=== PATIENT | female | born 1965 | race Caucasian/White ===

== ENCOUNTER 2018-04-09 14:26 | Emergency (ER) | payer OTHER ==
--- NOTE | 2018-04-09 16:26 | ER Document Report ---
ED Medical Screen (RME) - General Chief Complaint: Abdominal Pain Stated Complaint: ABDOMINAL PAIN,SWELLING Time Seen by Provider: 04/09/18 16:23 Notes: 52 years old female who is an alcoholic, presents today with jaundice. Abdominal swelling as well as lower extremity swelling. TRAVEL OUTSIDE OF THE [place] IN LAST 30 DAYS: No - Related Data Allergies/Adverse Reactions: No Known Allergies Allergy (Unverified 04/09/18 16:24) Past Medical History - Social History Chew tobacco use (# tins/day): No Frequency of alcohol use: Heavy Drug Abuse: None Endocrine Medical History: Reports: Hx Diabetes Mellitus Type 2 Renal/ Medical History: Denies: Hx Peritoneal Dialysis Past Surgical History: Reports: Hx Tonsillectomy
[2018-04-09 17:37] LABS: ABSOLUTE BASOPHILS # (AUTO) 0.1 10^3/uL (0.0-0.2); ABSOLUTE LYMPHOCYTES (AUTO) 0.9 10^3/uL (0.5-4.7); ABSOLUTE MONOCYTES (AUTO) 0.9 10^3/uL (0.1-1.4); ABSOLUTE NEUT (AUTO) 12.3 10^3/uL (1.7-8.2); BASOPHILS % (AUTO) 0.4 % (0-2); EOSINOPHILS % (AUTO) 0.3 % (0-6); HEMATOCRIT 39.5 % (36.0-47.0); HEMOGLOBIN 13.4 g/dL (12.0-15.5); LYMPHOCYTES % (AUTO) 6.1 % (13-45); MEAN CORPUSCULAR HEMOGLOBIN 36.4 pg (27.0-33.4); MEAN CORPUSCULAR VOLUME 107 fl (80-97); MONOCYTES % (AUTO) 6.2 % (3-13); PLATELET COUNT 188 10^3/uL (150-450); RED BLOOD COUNT 3.68 10^6/uL (3.72-5.28); RED CELL DISTRIBUTION WIDTH 16.2 % (11.5-14.0); TOTAL CELLS COUNTED % (AUTO) 100 %; WHITE BLOOD COUNT 14.1 10^3/uL (4.0-10.5)
[2018-04-09 17:57] LABS: ALANINE AMINOTRANSFERASE 61 U/L (9-52); ALCOHOL < 10 mg/dL (NONE DETECTED); ALKALINE PHOSPHATASE 292 U/L (38-126); ANION GAP 12 (5-19); ASPARTATE AMINO TRANSFERASE 226 U/L (14-36); BILIRUBIN,DIRECT 16.6 mg/dL (0.0-0.4); BILIRUBIN,TOTAL 18.4 mg/dL (0.2-1.3); BLOOD UREA NITROGEN 14 mg/dL (7-20); CALCIUM 8.2 mg/dL (8.4-10.2); CARBON DIOXIDE 21 mmol/L (22-30); CHLORIDE 94 mmol/L (98-107); GAMMA-GLUTAMYL TRANSFERASE 929 U/L (8-78); GLUCOSE 58 mg/dL (75-110); LIPASE 464.3 U/L (23-300); POTASSIUM 4.5 mmol/L (3.6-5.0); SODIUM 127.1 mmol/L (137-145)
--- NOTE | 2018-04-09 19:22 | ER Document Report ---
ED General - General Chief Complaint: Abdominal Pain Stated Complaint: ABDOMINAL PAIN,SWELLING Time Seen by Provider: 04/09/18 16:23 Notes: Patient is a 52-year-old female with alcohol abuse that presents to the emergency department for chief complaint of abdominal pain, lower extremity swelling. Patient reports having these symptoms for about a week particularly lower extremity swelling, but brought her into the emergency department, was that home health aide noticed that she was yellow, particularly in her eyes and skin, and advised her to come to the emergency department. The patient states that she has had jaundice before, but denies history of cirrhosis or liver disease that she is aware of, and is not receiving treatment or follows with a counterintelligence/humint specialist. Regards to her abdominal pain she describes as a tightness across her abdomen, rates it currently as a 2 out of 10, aching in sensation, occasionally sharp. The lower extremity swelling was bilateral, and has worsened over the last week, she denies noting any tenderness or redness associated with it. She reports that she drinks alcohol on a daily basis, but did stop drinking about 1 week ago. She was drinking about 10 beers prior to that daily. She has had associated nausea and vomiting about once a day, but denies any hematemesis. She states she has diarrhea almost a daily basis. Past Medical History: Depression/anxiety Past Surgical History: Gastric bypass surgery, cholecystectomy Social History: Denies smoking cigarettes, but admits to drinking 10 beers daily , denies illicit drug use. Family History: Reviewed and noncontributory for presenting illness Allergies: Reviewed, see documented allergy list. REVIEW OF SYSTEMS: Unless otherwise stated in this report the patient's positive and negative responses for review of systems for constitutional, eyes, ENT, cardiovascular, respiratory, gastrointestinal, neurological, genitourinary, musculoskeletal, and integumentary systems and related systems to the presenting problem are either as stated in the HPI or were not pertinent or were negative for the symptoms and/or complaints related to the presenting medical problem. PHYSICAL EXAMINATION: Vital signs reviewed, nursing noted reviewed. GENERAL: Well-appearing, well-nourished and in no acute distress. HEAD: Atraumatic, normocephalic. EYES: Eyes appear normal, extraocular movements intact, sclera icteric, conjunctiva are normal. ENT: nares patent, oropharynx clear without exudates. Moist mucous membranes. NECK: Normal range of motion, supple without lymphadenopathy LUNGS: Breath sounds clear to auscultation bilaterally and equal. No wheezes rales or rhonchi. HEART: Regular rate and rhythm without murmurs ABDOMEN: Soft, nontender, normoactive bowel sounds. No distention. No fluid wave. No rebound, guarding, or rigidity. No masses appreciated. EXTREMITIES: Nontender, good range of motion, no pitting or edema. NEUROLOGICAL: No focal neurological deficits. Moves all extremities spontaneously Motor and sensory grossly intact on exam. PSYCH: Normal mood, normal affect. SKIN: Warm, Dry, normal turgor, jaundiced TRAVEL OUTSIDE OF THE [place] IN LAST 30 DAYS: No - Related Data Allergies/Adverse Reactions: No Known Allergies Allergy (Unverified 04/09/18 16:24) Past Medical History - Social History Smoking Status: Never Smoker Chew tobacco use (# tins/day): No Frequency of alcohol use: Heavy Drug Abuse: None Family History: Reviewed & Not Pertinent Patient has suicidal ideation: No Patient has homicidal ideation: No Endocrine Medical History: Reports: Hx Diabetes Mellitus Type 2 Renal/ Medical History: Denies: Hx Peritoneal Dialysis Past Surgical History: Reports: Hx Tonsillectomy Physical Exam - Vital signs Vitals: Resp Pulse Ox 19 100 04/09/18 21:08 04/09/18 21:08 Course - Re-evaluation Re-evalutation: Patient seen and examined vital signs reviewed. Laboratory data and imaging were ordered as appropriate for the patient's presenting symptoms and complaint, with consideration of any critical or life threatening conditions that may be associated with their obtained history and exam as noted above. Patient was treated with IV fluids, Rocephin, for possible spontaneous bacterial peritonitis Results were reviewed when available and demonstrated laboratory data consistent with acute alcoholic hepatitis, possible spontaneous bacterial peritonitis, therefore cover with Rocephin, patient had hyponatremia, severely elevated bilirubin, elevated INR not on anticoagulants, patient was started on IV Solu-Medrol, due to a markedly elevated Maddrey discriminate function score The patient was re-evaluated and was stable from a hemodynamic standpoint, however this patient will need to be transferred to a tertiary center, to be seen by gastroenterology, did discuss this with our hospitalist who agreed with this, patient was agreeable to transfer Evaluation was most consistent with acute alcoholic hepatitis Results were discussed with the patient at this point after careful consideration I feel that that patient should be transferred to [facility] due to need for gastroenterology evaluation, that cannot be provided at this medical institution. Case was discussed with Dr. Villatoro, who accepted the patient, this was discussed with the patient that it is in the best interest for their care to be transferred, the risks and benefits of transfer were discussed, including but not limited to clinical deterioration during transport, respiratory distress, and potential for traumatic injuries. Patient agreed with this plan of care. *Note is created using voice recognition software and may contain spelling, syntax or grammatical errors. 04/09/18 21:42 Microbiology 04/09/18 17:08 Urine Culture - Preliminary Clean Catch Midstream Gram Negative Rods Laboratory 04/09/18 04/09/18 04/09/18 17:08 17:08 17:08 WBC 14.1 H RBC 3.68 L Hgb 13.4 Hct 39.5 MCV 107 H MCH 36.4 H MCHC 34.0 RDW 16.2 H Plt Count 188 Seg Neutrophils % 87.0 H Lymphocytes % 6.1 L Monocytes % 6.2 Eosinophils % 0.3 Basophils % 0.4 Absolute Neutrophils 12.3 H Absolute Lymphocytes 0.9 Absolute Monocytes 0.9 Absolute Eosinophils 0.0 Absolute Basophils 0.1 PT INR APTT Sodium 127.1 L Potassium 4.5 Chloride 94 L Carbon Dioxide 21 L Anion Gap 12 BUN 14 Creatinine 0.80 Est GFR ( Amer) > 60 Est GFR (Non-Af Amer) > 60 Glucose 58 L Calcium 8.2 L Total Bilirubin 18.4 H Direct Bilirubin 16.6 H Neonat Total Bilirubin Not Reportable Neonat Direct Bilirubin Not Reportable Neonat Indirect Bili Not Reportable GGT 929 H AST 226 H ALT 61 H Alkaline Phosphatase 292 H Ammonia 19.8 NT-Pro-B Natriuret Pep Total Protein 8.0 Albumin 3.0 L Lipase 464.3 H Acetaminophen Serum Alcohol < 10 04/09/1818 04/09/18 17:08 17:08 17:08 WBC RBC Hgb Hct MCV MCH MCHC RDW Plt Count Seg Neutrophils % Lymphocytes % Monocytes % Eosinophils % Basophils % Absolute Neutrophils Absolute Lymphocytes Absolute Monocytes Absolute Eosinophils Absolute Basophils PT 21.6 H INR 1.78 APTT 41.9 H Sodium Potassium Chloride Carbon Dioxide Anion Gap BUN Creatinine Est GFR ( Amer) Est GFR (Non-Af Amer) Glucose Calcium Total Bilirubin Direct Bilirubin Neonat Total Bilirubin Neonat Direct Bilirubin Neonat Indirect Bili GGT AST ALT Alkaline Phosphatase Ammonia NT-Pro-B Natriuret Pep 2480 H Total Protein Albumin Lipase Acetaminophen < 10 L Serum Alcohol Abdomen/Pelvis CT 04/09/18 16:24 IMPRESSION: Fatty infiltration of the liver. Ascites. No other significant findings in the abdomen or pelvis. - Vital Signs Vital signs: Temp Pulse Resp BP Pulse Ox 98.8 F 20 118/82 99 04/10/18 02:26 04/10/18 02:11 04/10/18 02:11 04/10/18 02:11 - Laboratory Result Diagrams: 04/09/18 17:08 04/09/18 17:08 Laboratory results interpreted by me: 04/09/18 04/09/18 04/09/18 17:08 17:08 17:08 WBC 14.1 H RBC 3.68 L MCV 107 H MCH 36.4 H RDW 16.2 H Seg Neutrophils % 87.0 H Lymphocytes % 6.1 L Absolute Neutrophils 12.3 H PT APTT Sodium 127.1 L Chloride 94 L Carbon Dioxide 21 L Glucose 58 L Calcium 8.2 L Total Bilirubin 18.4 H Direct Bilirubin 16.6 H GGT 929 H AST 226 H ALT 61 H Alkaline Phosphatase 292 H NT-Pro-B Natriuret Pep 2480 H Albumin 3.0 L Lipase 464.3 H Acetaminophen 04/09/18 04/09/18 17:08 17:08 WBC RBC MCV MCH RDW Seg Neutrophils % Lymphocytes % Absolute Neutrophils PT 21.6 H APTT 41.9 H Sodium Chloride Carbon Dioxide Glucose Calcium Total Bilirubin Direct Bilirubin GGT AST ALT Alkaline Phosphatase NT-Pro-B Natriuret Pep Albumin Lipase Acetaminophen < 10 L Discharge - Discharge Clinical Impression: Acute alcoholic hepatitis, Hyponatremia, Hyperbilirubinemia Leukocytosis Qualifiers: Leukocytosis type: unspecified Qualified Code(s): D72.829 - Elevated white blood cell count, unspecified Ascites Qualifiers: Ascites type: due to alcoholic hepatitis Qualified Code(s): K70.11 - Alcoholic hepatitis with ascites Condition: Stable Disposition: [facility]
[2018-04-09 19:51] LABS: INTERNATIONAL RATION (INR) 1.78; PROTHROMBIN TIME 21.6 SEC (11.4-15.4)
[2018-04-09 19:52] LABS: PARTIAL THROMBOPLASTIN TIME 41.9 SEC (23.5-35.8)
--- NOTE | 2018-04-09 20:03 | RADIOLOGY REPORT (SQ) ---
EXAM DESCRIPTION: CT ABD/PELVIS WITH IV ORAL COMPLETED DATE/TIME: 04/09/2018 7:42 pm REASON FOR STUDY: Jaundice /abdominal pain COMPARISON: None. TECHNIQUE: CT scan of the abdomen and pelvis performed using helical scanning technique with dynamic intravenous contrast injection. No oral contrast. Images reviewed with lung, soft tissue, and bone windows. Reconstructed coronal and sagittal MPR images reviewed. Delayed images for evaluation of the urinary system also acquired. All images stored on PACS. All CT scanners at this facility use dose modulation, iterative reconstruction, and/or weight based d osing when appropriate to reduce radiation dose to as low as reasonably achievable (ALARA). [facility]: Dose Right [facility]: CareDose [facility]: Dose Right [facility]: Teradose 4D [facility]: icix CONTRAST TYPE AND DOSE: contrast/concentration: Isovue 350.00 mg/ml; Total Contrast Delivered: 99.0 ml; Total Saline Delivered: 52.0 ml RENAL FUNCTION: BUN 14 creatinine 0.8 RADIATION DOSE: CT Rad equipment meets quality standard of care and radiation dose reduction techniq ues were employed. CTDIvol: 16.2 - 18.2 mGy. DLP: 1907 mGy-cm.. LIMITATIONS: None. FINDINGS: LOWER CHEST: No significant findings. No nodules or infiltrates. LIVER: The liver is diffusely hypoattenuating. No masses are seen. SPLEEN: Normal size. No focal lesions. PANCREAS: No masses. No significant calcifications. No adjacent inflammation or peripancreatic fluid collections. Pancreatic duct not dilated. GALLBLADDER: Surgically absent. ADRENAL GLANDS: No significant masses or asymmetry. RIGHT KIDNEY AND URETER: No solid masses. No significant calcifications. No hydronephrosis or hyd roureter. LEFT KIDNEY AND URETER: No solid masses. No significant calcifications. No hydronephrosis or hydr oureter. AORTA AND VESSELS: No aneurysm. No dissection. Renal arteries, SMA, celiac without stenosis. RETROPERITONEUM: No retroperitoneal adenopathy, hemorrhage or masses. BOWEL AND PERITONEAL CAVITY: No masses or inflammatory changes. Mild to moderate ascites. APPENDIX: Surgically absent. PELVIS: No mass. No free fluid. Normal bladder. ABDOMINAL WALL: No masses. No hernias. BONES: No significant or acute findings. OTHER: No other significant finding. IMPRESSION: Fatty infiltration of the liver. Ascites. No other significant findings in the abdomen or pelvis. TECHNICAL DOCUMENTATION: JOB ID: [id number] Quality ID # [id number]: Final reports with documentation of one or more dose reduction techniques (e.g., Au tomated exposure control, adjustment of the mA and/or kV according to patient size, use of iterative reconstruction technique) 2010 [employer]- All Rights Reserved Reading location - IP/workstation name: [email or web address]
[2018-04-09] MEDS ORDERED: CEFTRIAXONE INJ 1000 MG VIAL IV ONE (20:40)
[2018-04-09] MEDS ORDERED: METHYLPREDNISOLONE INJ 40 MG/1 ML SDV IV ONE (21:32)
[2018-04-09] MEDS ORDERED: NORMAL SALINE 500 ML IV ONE (21:33)
[2018-04-09] MEDS ORDERED: DEXTROSE 50%-WATER 25 GM/50 ML DISP.SYRIN IV ONE (21:41)
[2018-04-10 02:18] VITALS: BP 118/82
== END 2018-04-10 02:34 | disposition short-term general hospital (02) ==
LOC: ER 14:26
DX: K70.11 Alcoholic hepatitis with ascites (principal); D72.829 Elevated white blood cell count, unspecified; E87.1 Hypo-osmolality and hyponatremia
CPT/HCPCS: 99285; 96374; 96375; 96365; 96366; 36415; 87086; 82962; 80307 ×2; 82140; 82977; 83690; 85025; 85610; 85730; 87088; 80053; 87186; 83880; 74177; J3490; J2920; J0696

== ENCOUNTER 2018-04-25 19:52 | Emergency (ER) | payer OTHER ==
--- NOTE | 2018-04-25 20:14 | ER Document Report ---
ED Medical Screen (RME) - General Chief Complaint: Knee Pain Stated Complaint: LEFT KNEE PAIN Time Seen by Provider: 04/25/18 20:12 Notes: 56 years old female with a history of cirrhosis of the liver had a fall few weeks ago presents with left knee pain and swelling as well as left inner thigh swelling. No fever chills or other constitutional symptoms. TRAVEL OUTSIDE OF THE [place] IN LAST 30 DAYS: No - Related Data Allergies/Adverse Reactions: No Known Allergies Allergy (Verified 04/25/18 20:09) Past Medical History - Social History Frequency of alcohol use: None Drug Abuse: None Endocrine Medical History: Reports: Hx Diabetes Mellitus Type 2 Renal/ Medical History: Denies: Hx Peritoneal Dialysis Past Surgical History: Reports: Hx Tonsillectomy Physical Exam - Vital signs Vitals: Temp Pulse Resp BP Pulse Ox 98.8 F 88 18 96/64 L 99 04/25/18 20:00 04/25/18 20:00 04/25/18 20:00 04/25/18 20:00 04/25/18 20:00 Course - Vital Signs Vital signs: Temp Pulse Resp BP Pulse Ox 98.8 F 88 18 96/64 L 99 04/25/18 20:00 04/25/18 20:00 04/25/18 20:00 04/25/18 20:00 04/25/18 20:00
--- NOTE | 2018-04-25 20:41 | RADIOLOGY REPORT (SQ) ---
EXAM DESCRIPTION: KNEE LEFT 4 VIEW COMPLETED DATE/TIME: 04/25/2018 8:26 pm REASON FOR STUDY: Left knee injury COMPARISON: None. NUMBER OF VIEWS: Four views. TECHNIQUE: AP, lateral, and both oblique radiographic images acquired of the left knee. LIMITATIONS: None. FINDINGS: MINERALIZATION: Normal. BONES: No acute fracture or dislocation. No worrisome bone lesions. JOINT: No effusion. SOFT TISSUES: No soft tissue swelling. No radio-opaque foreign body. OTHER: No other significant finding. IMPRESSION: NEGATIVE STUDY OF THE LEFT KNEE. NO RADIOGRAPHIC EVIDENCE OF ACUTE INJURY. TECHNICAL DOCUMENTATION: JOB ID: [id number] [employer]- All Rights Reserved Reading location - IP/workstation name: [email or web address]
--- NOTE | 2018-04-25 20:47 | ER Document Report ---
ED General - General Chief Complaint: Knee Pain Stated Complaint: LEFT KNEE PAIN Time Seen by Provider: 04/25/18 20:12 Notes: Patient is a 52-year-old female that presents to the emergency department for chief complaint of left knee pain. Patient reports that she first noticed this knee pain on 20 July, which was 2 days after her discharge from an 8-day stay for acute liver failure in the hospital. She has improved significantly from that standpoint, she did not have any pain or swelling of her leg in the hospital, and noticed it only after she was discharged. She denies any injuries that she is aware of. She describes the pain as a constant aching and very tender sensation in her left knee and into the thigh as well. She is also noticed some swelling in the leg. She rates the pain currently as a 9 out of 10 at its worst. Denies any numbness, tingling or weakness in her lower extremity. Denies having any fevers, chills, chest pain or shortness of breath. Past Medical History: Depression, anxiety, alcoholism Past Surgical History: Gastric bypass surgery, cholecystectomy Social History: Previously was a daily drinker, has since quit since her recent acute liver failure, denies tobacco use or illicit drug use. Family History: Reviewed and noncontributory for presenting illness Allergies: Reviewed, see documented allergy list. REVIEW OF SYSTEMS: Unless otherwise stated in this report the patient's positive and negative responses for review of systems for constitutional, eyes, ENT, cardiovascular, respiratory, gastrointestinal, neurological, genitourinary, musculoskeletal, and integumentary systems and related systems to the presenting problem are either as stated in the HPI or were not pertinent or were negative for the symptoms and/or complaints related to the presenting medical problem. PHYSICAL EXAMINATION: Vital signs reviewed, nursing noted reviewed. GENERAL: Well-appearing, well-nourished and in no acute distress. HEAD: Atraumatic, normocephalic. EYES: Eyes appear normal, extraocular movements intact, scleral icterus, conjunctiva are normal. ENT: nares patent, oropharynx clear without exudates. Moist mucous membranes. NECK: Normal range of motion, supple without lymphadenopathy LUNGS: Breath sounds clear to auscultation bilaterally and equal. No wheezes rales or rhonchi. HEART: Regular rate and rhythm without murmurs ABDOMEN: Soft, nontender, normoactive bowel sounds. No rebound, guarding, or rigidity. No masses appreciated. EXTREMITIES: Left lower extremity is mildly edematous, and particularly tender along the venous system, but she is also tender circumferentially to the thigh and calf. No erythema noted, no signs of infection. The knee has good range of motion, no knee effusion, or erythema. The rest of the patient's extremity exam is grossly unremarkable. NEUROLOGICAL: No focal neurological deficits. Moves all extremities spontaneously Motor and sensory grossly intact on exam. PSYCH: Normal mood, normal affect. SKIN: Warm, Dry, normal turgor, no rashes or lesions noted on exposed skin TRAVEL OUTSIDE OF THE [place] IN LAST 30 DAYS: No - Related Data Allergies/Adverse Reactions: No Known Allergies Allergy (Verified 04/25/18 21:05) Past Medical History - Social History Smoking Status: Never Smoker Frequency of alcohol use: None Drug Abuse: None Family History: Reviewed & Not Pertinent Patient has suicidal ideation: No Patient has homicidal ideation: No Endocrine Medical History: Reports: Hx Diabetes Mellitus Type 2 Renal/ Medical History: Denies: Hx Peritoneal Dialysis Past Surgical History: Reports: Hx Tonsillectomy Physical Exam - Vital signs Vitals: Temp Pulse Resp BP Pulse Ox 98.8 F 88 18 96/64 L 99 04/25/18 20:00 04/25/18 20:00 04/25/18 20:00 04/25/18 20:00 04/25/18 20:00 Course - Re-evaluation Re-evalutation: Patient seen and examined vital signs reviewed. Laboratory data and imaging were ordered as appropriate for the patient's presenting symptoms and complaint, with consideration of any critical or life threatening conditions that may be associated with their obtained history and exam as noted above. Patient was treated with Keflex, doxycycline, morphine and Zofran Results were reviewed when available and demonstrated leukocytosis, with shift towards neutrophils, she does have transaminitis, which is actually improved from her prior visit, and hyperbilirubinemia which is also improved. Duplex imaging of the left lower extremity was negative for DVT, I did perform bedside ultrasound that demonstrated cobblestoning, and subcutaneous fluid, concerning for cellulitis. The patient was re-evaluated and was improved from a pain standpoint, she was still photographer to palpate on her left lower extremity. Evaluation was most consistent with left lower extremity cellulitis. After performing working up the patient I felt that she should be admitted to the hospital, for left lower extremity cellulitis, in particular with a leukocytosis, and her having liver disease, I spoke with the patient at length in regards to leaving the hospital against medical advice. I discussed evaluation for their presenting complaint and recommended further evaluation. I do not believe the patient should leave but the patient is alert oriented x4, understands the risks and benefits of staying and leaving including disability and . Pt understands that they can return at any time for further care and is more than welcome to do so. Pt verbalizes this understanding. *Note is created using voice recognition software and may contain spelling, syntax or grammatical errors. Laboratory 04/25/18 04/25/18 04/25/18 22:32 22:32 22:32 WBC 16.8 H RBC 3.71 L Hgb 13.9 Hct 40.7 MCV 110 H MCH 37.4 H MCHC 34.1 RDW 14.2 H Plt Count 206 Total Counted 100 Seg Neutrophils % Not Reportable Seg Neuts % (Manual) 90 H Lymphocytes % Not Reportable Lymphocytes % (Manual) 7 L Monocytes % Not Reportable Monocytes % (Manual) 3 Eosinophils % Not Reportable Eosinophils % (Manual) 0 Basophils % Not Reportable Basophils % (Manual) 0 Absolute Neutrophils Not Reportable Abs Neuts (Manual) 15.1 H Absolute Lymphocytes Not Reportable Abs Lymphs (Manual) 1.2 Absolute Monocytes Not Reportable Abs Monocytes (Manual) 0.5 Absolute Eosinophils Not Reportable Absolute Eos (Manual) 0.0 Absolute Basophils Not Reportable Abs Basophils (Manual) 0.0 Toxic Granulation SLIGHT Platelet Comment ADEQUATE Anisocytosis SLIGHT Macrocytosis 2+ PT 21.3 H INR 1.75 Sodium 138.7 Potassium 4.1 Chloride 110 H Carbon Dioxide 20 L Anion Gap 9 BUN 17 Creatinine 0.58 Est GFR ( Amer) > 60 Est GFR (Non-Af Amer) > 60 Glucose 96 Calcium 8.7 Total Bilirubin 6.9 H Direct Bilirubin 5.6 H Neonat Total Bilirubin Not Reportable Neonat Direct Bilirubin Not Reportable Neonat Indirect Bili Not Reportable AST 89 H ALT 65 H Alkaline Phosphatase 167 H Total Protein 6.3 Albumin 2.6 L Knee X-Ray 04/25/18 20:13 IMPRESSION: NEGATIVE STUDY OF THE LEFT KNEE. NO RADIOGRAPHIC EVIDENCE OF ACUTE INJURY. Venous Doppler Study 04/25/18 20:13 IMPRESSION: No evidence of deep venous thrombus. - Vital Signs Vital signs: Temp Pulse Resp BP Pulse Ox 98.8 F 88 18 96/64 L 99 04/25/18 20:00 04/25/18 20:00 04/25/18 20:00 04/25/18 20:00 04/25/18 20:00 - Laboratory Result Diagrams: 04/25/18 22:32 04/25/18 22:32 Laboratory results interpreted by me: 04/25/18 04/25/18 04/25/18 22:32 22:32 22:32 WBC 16.8 H RBC 3.71 L MCV 110 H MCH 37.4 H RDW 14.2 H Seg Neuts % (Manual) 90 H Lymphocytes % (Manual) 7 L Abs Neuts (Manual) 15.1 H PT 21.3 H Chloride 110 H Carbon Dioxide 20 L Total Bilirubin 6.9 H Direct Bilirubin 5.6 H AST 89 H ALT 65 H Alkaline Phosphatase 167 H Albumin 2.6 L Discharge - Discharge Clinical Impression: Cellulitis of left lower extremity Condition: Stable Disposition: AGAINST MEDICAL ADVICE Instructions: Cellulitis ([facility]) Additional Instructions: Please return to the emergency department if you change your mind, and to be admitted to the hospital, for the infection in your leg. Otherwise please follow-up with your primary care physician. I did a bedside ultrasound guided bedside duplex and then her white count 16,000 with 90% neutrophils Prescriptions: Cephalexin Monohydrate [Keflex 500 mg Capsule] 500 mg PO Q6H 7 Days #28 capsule Doxycycline Hyclate 100 mg PO BID #14 capsule Referrals: HARPER QUINTEROS MD [ACTIVE STAFF] - Follow up in 3-5 days (OR YOUR PRIMARY CARE. )
[2018-04-25] MEDS ORDERED: MORPHINE SULFATE 10 MG/ML INJ IM ONE (20:52)
[2018-04-25] MEDS ORDERED: ONDANSETRON 4 MG TAB.RAPDIS PO ONE (20:52)
--- NOTE | 2018-04-25 22:43 | RADIOLOGY REPORT (SQ) ---
Ultrasound left lower extremity venous duplex exam on 04/25/2018 at 9:19 PM Clinical indications: Left thigh swelling COMPARISON: None FINDINGS: Multiple sonographic images are obtained in the right groin and from the left groin through the left calf vessels. Color flow, compression and spectral analysis are all performed. There is complete compressibility of the veins of the lower extremity. Good color flow is identified within the veins of the lower extremity. IMPRESSION: No evidence of deep venous thrombus.
[2018-04-25 22:50] LABS: HEMATOCRIT 40.7 % (36.0-47.0); HEMOGLOBIN 13.9 g/dL (12.0-15.5); MEAN CORPUSCULAR HEMOGLOBIN 37.4 pg (27.0-33.4); MEAN CORPUSCULAR HGB CONC 34.1 g/dL (32.0-36.0); MEAN CORPUSCULAR VOLUME 110 fl (80-97); PLATELET COUNT 206 10^3/uL (150-450); RED BLOOD COUNT 3.71 10^6/uL (3.72-5.28); RED CELL DISTRIBUTION WIDTH 14.2 % (11.5-14.0); WHITE BLOOD COUNT 16.8 10^3/uL (4.0-10.5)
[2018-04-25 22:55] LABS: INTERNATIONAL RATION (INR) 1.75; PROTHROMBIN TIME 21.3 SEC (11.4-15.4)
[2018-04-25 23:09] LABS: ALANINE AMINOTRANSFERASE 65 U/L (9-52); ALBUMIN 2.6 g/dL (3.5-5.0); ALKALINE PHOSPHATASE 167 U/L (38-126); ANION GAP 9 (5-19); ASPARTATE AMINO TRANSFERASE 89 U/L (14-36); BILIRUBIN,DIRECT 5.6 mg/dL (0.0-0.4); BILIRUBIN,TOTAL 6.9 mg/dL (0.2-1.3); BLOOD UREA NITROGEN 17 mg/dL (7-20); CALCIUM 8.7 mg/dL (8.4-10.2); CARBON DIOXIDE 20 mmol/L (22-30); CHLORIDE 110 mmol/L (98-107); GLUCOSE 96 mg/dL (75-110); POTASSIUM 4.1 mmol/L (3.6-5.0); SODIUM 138.7 mmol/L (137-145); TOTAL PROTEIN 6.3 g/dL (6.3-8.2)
[2018-04-25 23:13] LABS: ABSOLUTE LYMPHOCYTES# (MANUAL) 1.2 10^3/uL (0.5-4.7); ABSOLUTE MONOCYTES # (MANUAL) 0.5 10^3/uL (0.1-1.4); ABSOLUTE NEUTROPHILS# (MANUAL) 15.1 10^3/uL (1.7-8.2); BASOPHILS % (MANUAL) 0 % (0-2); EOSINOPHILS % (MANUAL) 0 % (0-6); LYMPHOCYTES % (MANUAL) 7 % (13-45); MONOCYTES % (MANUAL) 3 % (3-13); SEGMENTED NEUTROPHILS % (MAN) 90 % (42-78); TOTAL CELLS COUNTED 100
[2018-04-25 23:14] LABS: ANISOCYTOSIS SLIGHT
[2018-04-25 23:15] LABS: PLATELET COMMENT ADEQUATE; TOXIC GRANULATION SLIGHT
[2018-04-25] MEDS ORDERED: CEPHALEXIN 500 MG CAPSULE PO ONE (23:16)
[2018-04-25] MEDS ORDERED: DOXYCYCLINE HYCLATE 100 MG TABLET PO ONE (23:16)
[2018-04-26 01:20] VITALS: BP 98/62
== END 2018-04-26 00:25 | disposition left against medical advice (07) ==
LOC: ER 19:52
DX: L03.116 Cellulitis of left lower limb (principal); M25.562 Pain in left knee; M79.652 Pain in left thigh; D72.829 Elevated white blood cell count, unspecified; E11.9 Type 2 diabetes mellitus without complications; Z98.84 Bariatric surgery status; Z53.20 Procedure and treatment not carried out because of patient's decision for unspecified reasons
CPT/HCPCS: 99284; 96372; 36415; 85025; 85610; 80053; 93971; 73564; S0119; J2270

== ENCOUNTER 2018-05-13 10:12 | Inpatient (IN) | payer OTHER ==
--- NOTE | 2018-05-13 10:34 | ER Document Report ---
ED Medical Screen (RME) - General Chief Complaint: Shortness Of Breath Stated Complaint: SHORT OF BREATH Time Seen by Provider: 05/13/18 10:23 TRAVEL OUTSIDE OF THE [place] IN LAST 30 DAYS: No - HPI Patient complains to provider of: Shortness of breath Onset: Other - 52-year-old female with alcoholic cirrhosis of the liver and ascites presents for dyspnea. She was seen in urgent care subsequently referred because of her shortness of breath. She endorses a cough as well as some low- grade fever, she is producing sputum with her cough. Nothing is making her symptoms better, time seems to be making them worse. - Related Data Allergies/Adverse Reactions: No Known Allergies Allergy (Verified 05/13/18 10:31) Past Medical History - Social History Chew tobacco use (# tins/day): No Frequency of alcohol use: None Drug Abuse: None Pulmonary Medical History: Reports: Hx Asthma Endocrine Medical History: Reports: Hx Diabetes Mellitus Type 2 Renal/ Medical History: Denies: Hx Peritoneal Dialysis Psychiatric Medical History: Reports: Hx Depression Past Surgical History: Reports: Hx Abdominal Surgery - gastric bypass, Hx Appendectomy, Hx Cholecystectomy, Hx Hysterectomy, Hx Tonsillectomy Physical Exam - Vital signs Vitals: Temp Pulse Resp BP Pulse Ox 98.0 F 116 H 18 120/87 H 100 05/13/18 10:18 05/13/18 10:18 05/13/18 10:18 05/13/18 10:18 05/13/18 10:18 Course - Re-evaluation Re-evalutation: 05/13/18 10:33 This woman with past medical history significant for cirrhosis,. Her abdomen is rounded and distended, she has a cough shortness of breath and is producing sputum feels generally unwell. We will initiate broad workup including CMP CBC with coags for investigation of her function. We will plan for patient undergo two-view chest x-ray as well. We will defer further imaging and disposition in next provider. I have seen and evaluated this patient and performed a rapid medical screening examination, he does not appear to have an immediate life threat however will require further investigation and disposition determination by another provider. - Vital Signs Vital signs: Temp Pulse Resp BP Pulse Ox 98.0 F 116 H 18 120/87 H 100 05/13/18 10:18 05/13/18 10:18 05/13/18 10:18 05/13/18 10:18 05/13/18 10:18
[2018-05-13] MEDS ORDERED: IPRATROPIUM/ALBUTEROL 0.5-2.5 MG/3 ML AMPUL NEB ONE (11:17)
[2018-05-13 11:19] LABS: ABSOLUTE BASOPHILS # (AUTO) 0.1 10^3/uL (0.0-0.2); ABSOLUTE EOSINOPHILS # (AUTO) 0.1 10^3/uL (0.0-0.6); ABSOLUTE LYMPHOCYTES (AUTO) 0.8 10^3/uL (0.5-4.7); ABSOLUTE MONOCYTES (AUTO) 0.7 10^3/uL (0.1-1.4); ABSOLUTE NEUT (AUTO) 8.8 10^3/uL (1.7-8.2); BASOPHILS % (AUTO) 0.5 % (0-2); EOSINOPHILS % (AUTO) 0.9 % (0-6); HEMATOCRIT 41.9 % (36.0-47.0); HEMOGLOBIN 14.2 g/dL (12.0-15.5); LYMPHOCYTES % (AUTO) 7.6 % (13-45); MEAN CORPUSCULAR HEMOGLOBIN 36.2 pg (27.0-33.4); MEAN CORPUSCULAR VOLUME 107 fl (80-97); RED BLOOD COUNT 3.92 10^6/uL (3.72-5.28); RED CELL DISTRIBUTION WIDTH 14.1 % (11.5-14.0); TOTAL CELLS COUNTED % (AUTO) 100 %; WHITE BLOOD COUNT 10.5 10^3/uL (4.0-10.5)
[2018-05-13 11:32] LABS: PLATELET COUNT 198 10^3/uL (150-450)
[2018-05-13 11:35] LABS: ALANINE AMINOTRANSFERASE 48 U/L (9-52); ALBUMIN 2.9 g/dL (3.5-5.0); ALKALINE PHOSPHATASE 232 U/L (38-126); ANION GAP 9 (5-19); ASPARTATE AMINO TRANSFERASE 85 U/L (14-36); BILIRUBIN,DIRECT 3.6 mg/dL (0.0-0.4); BILIRUBIN,TOTAL 5.7 mg/dL (0.2-1.3); BLOOD UREA NITROGEN 10 mg/dL (7-20); CALCIUM 8.4 mg/dL (8.4-10.2); CARBON DIOXIDE 19 mmol/L (22-30); CHLORIDE 104 mmol/L (98-107); GLUCOSE 94 mg/dL (75-110); LIPASE 471.9 U/L (23-300); POTASSIUM 4.5 mmol/L (3.6-5.0); SODIUM 132.4 mmol/L (137-145); TOTAL PROTEIN 7.1 g/dL (6.3-8.2)
[2018-05-13] MEDS ORDERED: FUROSEMIDE INJ/PF 40 MG/4 ML SDV IV ONE (11:40)
--- NOTE | 2018-05-13 11:46 | ER Document Report ---
ED General - General Chief Complaint: Shortness Of Breath Stated Complaint: SHORT OF BREATH Time Seen by Provider: 05/13/18 10:23 Mode of Arrival: Ambulatory Information source: Patient, Relative, [facility] Records Notes: 52-year-old female with alcoholic cirrhosis, known ascites, asthma, type 2 diabetes presents with complaint of shortness of breath that started 3 days prior to arrival. Patient reports a productive cough with white sputum. She denies fever, chills, chest pain. She is complaining of shortness of breath. Patient has abdominal pain which has been present for over 1 month. She was recently transferred to [facility] for GI assessment for her alcoholic cirrhosis. She did not undergo paracentesis there. She was reevaluated last week by her GI doctor Dr. Mraquez. She states that she did tell him about the abdominal pain. She states that her abdomen was more distended last week than it is now. Patient denies current alcohol use. is at the bedside and states that when the patient presented in March 2018 she was confused, altered. Today the patient is alert, awake. TRAVEL OUTSIDE OF THE [place] IN LAST 30 DAYS: No - HPI Onset: Other - 3 days prior to arrival Onset/Duration: Persistent Quality of pain: Fullness Severity: Moderate Associated symptoms: Productive cough, Hurts to breath, Leg swelling, Shortness of breath. denies: Chest pain, Chills, Fever, Nausea, Vomiting Exacerbated by: Coughing Relieved by: Denies Similar symptoms previously: Yes Recently seen / treated by doctor: Yes - Related Data Allergies/Adverse Reactions: No Known Allergies Allergy (Verified 05/13/18 10:31) Past Medical History - General Information source: Patient, Relative, [facility] Records - Social History Smoking Status: Never Smoker Chew tobacco use (# tins/day): No Frequency of alcohol use: Heavy - Previous history of heavy daily alcohol use. States that she has not used in a few weeks. Drug Abuse: None Family History: Reviewed & Not Pertinent Patient has suicidal ideation: No Patient has homicidal ideation: No Pulmonary Medical History: Reports: Hx Asthma Endocrine Medical History: Reports: Hx Diabetes Mellitus Type 2 Renal/ Medical History: Denies: Hx Peritoneal Dialysis GI Medical History: Reports: Hx Cirrhosis Psychiatric Medical History: Reports: Hx Depression Past Surgical History: Reports: Hx Abdominal Surgery - gastric bypass, Hx Appendectomy, Hx Cholecystectomy, Hx Hysterectomy, Hx Tonsillectomy Review of Systems - Review of Systems Constitutional: denies: Fever, Weakness EENT: No symptoms reported Cardiovascular: denies: Chest pain, Dizziness Respiratory: Cough, Hurts to breathe, Short of breath Gastrointestinal: Abdomen distended, Abdominal pain. denies: Nausea, Vomiting Genitourinary: denies: Dysuria, Flank pain Female Genitourinary: No symptoms reported Musculoskeletal: denies: Back pain Skin: denies: Rash Hematologic/Lymphatic: No symptoms reported Neurological/Psychological: denies: Confusion, Weakness, Gait changes, Headaches -: Yes All other systems reviewed and negative Physical Exam - Vital signs Vitals: Temp Pulse Resp BP Pulse Ox 98.0 F 116 H 18 120/87 H 100 05/13/18 10:18 05/13/18 10:18 05/13/18 10:18 05/13/18 10:18 05/13/18 10:18 Interpretation: Tachycardic. No: Febrile - Notes Notes: PHYSICAL EXAMINATION: GENERAL: Well-appearing, well-nourished and in no acute distress. HEAD: Atraumatic, normocephalic. EYES: Pupils equal round and reactive to light, extraocular movements intact, mild scleral icterus. ENT: Nares patent, oropharynx clear without exudates. Moist mucous membranes. NECK: Normal range of motion, supple without lymphadenopathy LUNGS: Breath sounds clear to auscultation bilaterally and equal. No wheezes rales or rhonchi. HEART: Tachycardic, regular rhythm, no murmurs. ABDOMEN: Right upper quadrant tenderness with palpation. Abdominal distention. No guarding, no rebound. No masses appreciated. Female : deferred Musculoskeletal: Normal range of motion, no pitting or edema. No cyanosis. NEUROLOGICAL: Cranial nerves grossly intact. Normal speech, normal gait. Normal sensory, motor exams PSYCH: Normal mood, normal affect. SKIN: Warm, Dry, normal turgor, no rashes or lesions noted. Course - Re-evaluation Re-evalutation: 05/14/18 20:22 Microbiology 05/13/18 15:00 Blood Culture - Preliminary Blood NO GROWTH IN 24 HOURS 05/13/18 14:00 Blood Culture - Preliminary Blood Gram Positive Cocci In Pairs Laboratory 05/13/18 05/13/18 05/13/18 10:40 10:40 10:40 WBC 10.5 RBC 3.92 Hgb 14.2 Hct 41.9 MCV 107 H MCH 36.2 H MCHC 34.0 RDW 14.1 H Plt Count 198 Seg Neutrophils % 84.0 H Lymphocytes % 7.6 L Monocytes % 7.0 Eosinophils % 0.9 Basophils % 0.5 Absolute Neutrophils 8.8 H Absolute Lymphocytes 0.8 Absolute Monocytes 0.7 Absolute Eosinophils 0.1 Absolute Basophils 0.1 PT INR APTT Sodium 132.4 L Potassium 4.5 Chloride 104 Carbon Dioxide 19 L Anion Gap 9 BUN 10 Creatinine 0.70 Est GFR ( Amer) > 60 Est GFR (Non-Af Amer) > 60 Glucose 94 POC Glucose Hemoglobin A1c % Calcium 8.4 Magnesium Total Bilirubin 5.7 H Direct Bilirubin 3.6 H Neonat Total Bilirubin Not Reportable Neonat Direct Bilirubin Not Reportable Neonat Indirect Bili Not Reportable AST 85 H ALT 48 Alkaline Phosphatase 232 H Total Protein 7.1 Albumin 2.9 L Lipase 471.9 H 488.1 H Urine Creatinine Urine Sodium 05/13/18 05/13/18 05/13/18 10:40 11:32 17:24 WBC RBC Hgb Hct MCV MCH MCHC RDW Plt Count Seg Neutrophils % Lymphocytes % Monocytes % Eosinophils % Basophils % Absolute Neutrophils Absolute Lymphocytes Absolute Monocytes Absolute Eosinophils Absolute Basophils PT 19.2 H INR 1.54 APTT 39.4 H Sodium Potassium Chloride Carbon Dioxide Anion Gap BUN Creatinine Est GFR ( Amer) Est GFR (Non-Af Amer) Glucose POC Glucose 143 H Hemoglobin A1c % 4.1 L Calcium Magnesium Total Bilirubin Direct Bilirubin Neonat Total Bilirubin Neonat Direct Bilirubin Neonat Indirect Bili AST ALT Alkaline Phosphatase Total Protein Albumin Lipase Urine Creatinine Urine Sodium 05/13/18 05/13/18 05/14/18 23:11 23:52 04:26 WBC 11.4 H RBC 3.73 Hgb 13.4 Hct 39.3 MCV 105 H MCH 35.8 H MCHC 34.1 RDW 13.8 Plt Count 188 Seg Neutrophils % 80.9 H Lymphocytes % 11.0 L Monocytes % 6.5 Eosinophils % 0.8 Basophils % 0.8 Absolute Neutrophils 9.3 H Absolute Lymphocytes 1.3 Absolute Monocytes 0.7 Absolute Eosinophils 0.1 Absolute Basophils 0.1 PT INR APTT Sodium Potassium Chloride Carbon Dioxide Anion Gap BUN Creatinine Est GFR ( Amer) Est GFR (Non-Af Amer) Glucose POC Glucose 90 Hemoglobin A1c % Calcium Magnesium Total Bilirubin Direct Bilirubin Neonat Total Bilirubin Neonat Direct Bilirubin Neonat Indirect Bili AST ALT Alkaline Phosphatase Total Protein Albumin Lipase Urine Creatinine 43.7 Urine Sodium 41 05/14/18 04:26 WBC RBC Hgb Hct MCV MCH MCHC RDW Plt Count Seg Neutrophils % Lymphocytes % Monocytes % Eosinophils % Basophils % Absolute Neutrophils Absolute Lymphocytes Absolute Monocytes Absolute Eosinophils Absolute Basophils PT INR APTT Sodium 133.4 L Potassium 3.4 L D Chloride 103 Carbon Dioxide 20 L Anion Gap 10 BUN 10 Creatinine 0.77 Est GFR ( Amer) > 60 Est GFR (Non-Af Amer) > 60 Glucose 102 POC Glucose Hemoglobin A1c % Calcium 7.8 L Magnesium 1.6 Total Bilirubin 5.0 H Direct Bilirubin 3.2 H Neonat Total Bilirubin Not Reportable Neonat Direct Bilirubin Not Reportable Neonat Indirect Bili Not Reportable AST 68 H ALT 42 Alkaline Phosphatase 182 H Total Protein 5.8 L Albumin 2.4 L Lipase Urine Creatinine Urine Sodium Chest X-Ray 05/13/18 10:31 IMPRESSION: Low lung volumes with bibasilar atelectasis. Question early or developing right upper lobe pneumonia. Chest/Abdomen CTA 05/13/18 11:40 IMPRESSION: No CT angio evidence of acute pulmonary emboli or thoracic aortic dissection. Minimal airspace disease in the right upper lobe, question early or developing pneumonia. Moderate ascites with nodular liver and splenomegaly from portal hypertension and cirrhosis. Post gastric bypass. 52-year-old female with known alcoholic cirrhosis presents with complaint of shortness of breath that has been ongoing for the last couple of days. Upon arrival patient is tachycardic, visibly dyspneic, but afebrile. Previous nursing notes and medical records were reviewed. Patient was placed on, provided breathing treatments. CBC was without leukocytosis or anemia. CMP showed no remarkable electrolyte abnormalities and renal function. LFTs despite the patient's liver cirrhosis are only mildly elevated. Chest x-ray was obtained and questionable for right upper lobe pneumonia. Since the patient has been recently hospitalized vancomycin and aztreonam was initiated. The patient remained consistently tachycardic and CTA was obtained to assess for PE which was negative for PE but again questionable for development of a upper lobe pneumonia. It also showed moderate ascites, which is likely contributing to the patient's shortness of breath. She may require therapeutic paracentesis. Patient has remained stable throughout her ED course. She is agreeable with admission. Patient was accepted by the hospitalist. 05/14/18 20:23 05/15/18 10:27 05/15/18 10:31 - Vital Signs Vital signs: Temp Pulse Resp BP Pulse Ox 98.9 F 98 186 H 106/60 97 05/15/18 07:40 05/15/18 09:01 05/15/18 09:01 05/15/18 07:40 05/15/18 09:01 - Laboratory Result Diagrams: 05/14/18 04:26 05/15/18 05:43 Laboratory results interpreted by me: 05/13/18 05/13/18 05/13/18 10:40 10:40 10:40 MCV 107 H MCH 36.2 H RDW 14.1 H Seg Neutrophils % 84.0 H Lymphocytes % 7.6 L Absolute Neutrophils 8.8 H PT APTT Sodium 132.4 L Carbon Dioxide 19 L Hemoglobin A1c % Total Bilirubin 5.7 H Direct Bilirubin 3.6 H AST 85 H Alkaline Phosphatase 232 H Albumin 2.9 L Lipase 471.9 H 488.1 H 05/13/18 05/13/18 10:40 11:32 MCV MCH RDW Seg Neutrophils % Lymphocytes % Absolute Neutrophils PT 19.2 H APTT 39.4 H Sodium Carbon Dioxide Hemoglobin A1c % 4.1 L Total Bilirubin Direct Bilirubin AST Alkaline Phosphatase Albumin Lipase - Diagnostic Test Radiology reviewed: Image reviewed, Reports reviewed - EKG Interpretation by Me EKG shows normal: Sinus rhythm Rate: Tachycardia Rhythm: NSR When compared to previous EKG there are: No significant change Discharge - Discharge Clinical Impression: HCAP (healthcare-associated pneumonia), Tachycardia Dyspnea Qualifiers: Dyspnea type: unspecified Qualified Code(s): R06.00 - Dyspnea, unspecified Alcoholic cirrhosis of liver Qualifiers: Ascites presence: with ascites Qualified Code(s): K70.31 - Alcoholic cirrhosis of liver with ascites Condition: Fair Disposition: ADMITTED INPATIENT Admitting Provider: Hospitalist Unit Admitted: Telemetry
--- NOTE | 2018-05-13 11:54 | RADIOLOGY REPORT (SQ) ---
EXAM DESCRIPTION: CHEST 2 VIEWS COMPLETED DATE/TIME: 05/13/2018 11:03 am REASON FOR STUDY: dysppnea COMPARISON: None. EXAM PARAMETERS: NUMBER OF VIEWS: two views TECHNIQUE: Digital Frontal and Lateral radiographic views of the chest acquired. RADIATION DOSE: NA LIMITATIONS: none FINDINGS: LUNGS AND PLEURA: Very low lung volumes with bibasilar bandlike atelectasis. Question early or developing right upper lobe infiltrate, marked with a [place], worrisome for pneumon ia. No pneumothorax. No pleural effusions. MEDIASTINUM AND HILAR STRUCTURES: No masses or contour abnormalities. HEART AND VASCULAR STRUCTURES: Heart normal size. No evidence for failure. BONES: No acute findings. HARDWARE: None in the chest. OTHER: Clips right upper quadrant post cholecystectomy IMPRESSION: Low lung volumes with bibasilar atelectasis. Question early or developing right upper l obe pneumonia. TECHNICAL DOCUMENTATION: JOB ID: [id number] [employer]- All Rights Reserved Reading location - IP/workstation name: [email or web address]
[2018-05-13 12:01] LABS: INTERNATIONAL RATION (INR) 1.54; PROTHROMBIN TIME 19.2 SEC (11.4-15.4)
[2018-05-13 12:02] LABS: PARTIAL THROMBOPLASTIN TIME 39.4 SEC (23.5-35.8)
[2018-05-13] MEDS ORDERED: PIPERACILLIN/TAZOBACTAM 3.375 GM VIAL IV ONE (13:20)
[2018-05-13] MEDS ORDERED: VANCOMYCIN HCL INJ 1000 MG VIAL IV ONE (13:20)
--- NOTE | 2018-05-13 13:42 | RADIOLOGY REPORT (SQ) ---
EXAM DESCRIPTION: CTA CHEST COMPLETED DATE/TIME: 05/13/2018 1:14 pm REASON FOR STUDY: sob shortness of breath, pain on deep inspiration COMPARISON: Two-view chest 05/13/2018 TECHNIQUE: CT scan of the chest performed using helical scanning technique with dynamic intravenous contrast injection. Images reviewed with lung, soft tissue and bone windows. Reconstructed coronal and sagittal MPR images reviewed. Additional 3 dimensional post-processing performed to develop Maximal Intensity Projection images (MD P). All images stored on PACS. All CT scanners at this facility use dose modulation, iterative reconstruction, and/or weight based d osing when appropriate to reduce radiation dose to as low as reasonably achievable (ALARA). [facility]: Dose Right [facility]: CareDose [facility]: Dose Right [facility]: Teradose 4D [facility]: Viamericas CONTRAST TYPE AND DOSE: contrast/concentration: Isovue 350.00 mg/ml; Total Contrast Delivered: 74.0 ml; Total Saline Delivered: 110.0 ml Contrast bolus optimized for the pulmonary arteries and thoracic aorta. RENAL FUNCTION: Creatinine 0.7 RADIATION DOSE: CT Rad equipment meets quality standard of care and radiation dose reduction techniq ues were employed. CTDIvol: 21.2 - 33.1 mGy. DLP: 634 mGy-cm. . LIMITATIONS: None. FINDINGS: Post gastric bypass. Moderate to large amount of ascites in the upper abdomen. Nodular c ontour of the liver worrisome for cirrhosis. Splenomegaly. LUNGS AND PLEURA: Bandlike atelectasis is present just above the right and left hemidiaphragms. In the periphery of the right upper lobe on axial images 22-32, there is patchy airspace disease worr isome for early or developing pneumonia. AORTA AND GREAT VESSELS: No thoracic aortic aneurysm or dissection. HEART: No pericardial effusion. No significant coronary artery calcifications. PULMONARY ARTERIES: No emboli visualized in the main pulmonary arteries or the segmental branches. HILAR AND MEDIASTINAL STRUCTURES: No identified masses or abnormal nodes. HARDWARE: None in the chest. UPPER ABDOMEN: As above THYROID AND OTHER SOFT TISSUES: No masses. No adenopathy. BONES: No acute or significant finding. 3D MIPS: Confirm above findings. OTHER: No other significant finding. IMPRESSION: No CT angio evidence of acute pulmonary emboli or thoracic aortic dissection. Minimal airspace disease in the right upper lobe, question early or developing pneumonia. Moderate ascites with nodular liver and splenomegaly from portal hypertension and cirrhosis. Post ga stric bypass. COMMENT: Quality ID # [id number]: Final reports with documentation of one or more dose reduction techniques (e.g., Automated exposure control, adjustment of the mA and/or kV according to patient size, use of iterative reconstruction technique) TECHNICAL DOCUMENTATION: JOB ID: [id number] [employer]- All Rights Reserved Reading location - IP/workstation name: [email or web address]
[2018-05-13] MEDS ORDERED: IPRATROPIUM/ALBUTEROL 0.5-2.5 MG/3 ML AMPUL NEB PRN (14:38)
[2018-05-13] MEDS ORDERED: ONDANSETRON HCL INJ/PF 4 MG/2 ML SDV IV PRN (14:38)
[2018-05-13] MEDS ORDERED: LACTULOSE SYRUP 20 GM/30 ML UDCUP PO PRN (14:47)
[2018-05-13] MEDS ORDERED: VANCOMYCIN HCL 0 MG in DEXTROSE 5%-WATER 250 ML IV NR (15:00)
--- NOTE | 2018-05-13 15:55 | PDOC H&P ---
History of Present Illness Admission Date/PCP: 05/13/18 14:03 Patient complains of: Shortness of breath History of Present Illness: THEODORE BELTRÁN is a 52 year old female past medical history of EtOH abuse , alcoholic cirrhosis, gastric bypass in 1997, chronic anemia. Patient presented to [facility] on 04/09/2018 complaining of worsening jaundice and bilateral lower extremity edema and was diagnosed with alcoholic hepatitis. She was transferred to [facility] for gastroenterology evaluation. She was hospitalized there for 8 days and was diagnosed with cirrhosis due to alcoholism chance that other causes of cirrhosis were ruled out. She was neither intubated nor was any other procedure done. Denies any history of variceal bleeding, SBP or paracentesis. Patient is presenting today complaining of worsening productive cough and shortness of breath associated with nausea dry heaves, worsening bilateral lower extremity edema. He is also complaining of persistent right upper quadrant pain for a month and endorses diarrhea but she states that she is on lactulose for her cirrhosis. She denies any fever, chills, chest pain or any urinary symptoms. She states that she has severe iron deficiency anemia and she was placed on ferrous sulfate for the last several years. She denies any hematemesis, varices or variceal bleeding, hemoptysis, melena, hematochezia Past Medical History Pulmonary Medical History: Reports: Asthma Endocrine Medical History: Reports: Diabetes Mellitus Type 2 GI Medical History: Reports: Cirrhosis Psychiatric Medical History: Reports: Depression Past Surgical History Past Surgical History: Reports: Appendectomy, Cholecystectomy, Hysterectomy, Tonsillectomy Social History Smoking Status: Never Smoker Family History Family History: Reviewed & Not Pertinent Parental Family History Reviewed: Yes Children Family History Reviewed: Yes Sibling(s) Family History Reviewed.: Yes Medication/Allergy Home Medications: Bupropion HCl [Wellbutrin Xl 150 mg 24hr Tablet] 150 mg PO QAM 05/13/18 Citalopram Hydrobromide [Celexa 20 mg Tablet] 20 mg PO DAILY 05/13/18 Ferrous Sulfate [Feosol 325 mg Tablet] 325 mg PO TID 05/13/18 Multivitamin [Daily Multiple Vitamin] 1 tab PO DAILY 05/13/18 Allergies/Adverse Reactions: No Known Allergies Allergy (Verified 05/13/18 10:31) Review of Systems Review of Systems: As per HPI Physical Exam Vital Signs: Temp Pulse Resp BP Pulse Ox 98.0 F 116 H 18 120/87 H 100 05/13/18 10:18 05/13/18 10:18 05/13/18 10:18 05/13/18 10:18 05/13/18 10:18 General appearance: PRESENT: no acute distress, morbidly obese, well-developed, well-nourished Neck exam: ABSENT: carotid bruit, JVD, lymphadenopathy, thyromegaly Respiratory exam: PRESENT: clear to auscultation melany. ABSENT: rales, rhonchi, wheezes Cardiovascular exam: PRESENT: RRR. ABSENT: diastolic murmur, rubs, systolic murmur GI/Abdominal exam: PRESENT: normal bowel sounds, soft. ABSENT: distended, guarding, mass, organolmegaly, rebound, tenderness Extremities exam: PRESENT: +2 edema - Above knees Neurological exam: PRESENT: other - No asterixis Skin exam: PRESENT: other - Spider angiomas over chest Results Impressions: Chest X-Ray 05/13/18 10:31 IMPRESSION: Low lung volumes with bibasilar atelectasis. Question early or developing right upper lobe pneumonia. Chest/Abdomen CTA 05/13/18 11:40 IMPRESSION: No CT angio evidence of acute pulmonary emboli or thoracic aortic dissection. Minimal airspace disease in the right upper lobe, question early or developing pneumonia. Moderate ascites with nodular liver and splenomegaly from portal hypertension and cirrhosis. Post gastric bypass. Assessment & Plan - Diagnosis (1) Pneumonia Is this a current diagnosis for this admission?: Yes Plan: Healthcare/hospital-acquired pneumonia likely due to recent hospitalization. Start on Vanco and cefepime for empiric coverage of Pseudomonas and gram- positive cocci. Sputum culture. Nebs. (2) Alcoholic cirrhosis Is this a current diagnosis for this admission?: Yes Plan: Child Salazar score of 11 grade C. Continue lactulose. Monitor volume status. Monitor for metabolic encephalopathy. Empiric SBP treatment. She is reporting right upper quadrant pain for the last 1 month. No significant ascites appreciated based on physical examination. (3) Volume overload Is this a current diagnosis for this admission?: Yes Plan: Continue IV Lasix guided by her vitals. Monitor electrolytes, volume restriction, strict in and out. Hepatic diet. (4) Hyponatremia Is this a current diagnosis for this admission?: Yes Plan: Hypervolemic hyponatremic hyponatremia. Due to underlying volume overload caused by liver cirrhosis. Will order urine sodium, urine creatinine. Continue IV Lasix guided by her vital status. CMP tomorrow (5) Depression Is this a current diagnosis for this admission?: No Plan: Denies any suicidal or homicidal ideation. Restart home meds.
--- NOTE | 2018-05-13 16:27 | EKG REPORT ---
SEVERITY:- ABNORMAL ECG - SINUS TACHYCARDIA LEFT AXIS DEVIATION CONSIDER ANTEROSEPTAL INFARCT NONSPECIFIC T ABNORMALITIES, LATERAL LEADS : Confirmed by: Dex Patel MD 13-May-2018 16:26:23
--- NOTE | 2018-05-13 16:28 | EKG REPORT ---
SEVERITY:- ABNORMAL ECG - SINUS TACHYCARDIA INFERIOR INFARCT, ACUTE (UNCERTAIN, SEVERE BASELINE DISTORTION INFERIOR LEADS), NEED REPEAT EKG TO BE SURE, NEED CLINICAL CORRELATION. CONSIDER ANTEROSEPTAL INFARCT : Confirmed by: Dex Patel MD 13-May-2018 16:27:55
[2018-05-13] MEDS: FERROUS SULFATE 325 MG TABLET PO SCH (17:52)
[2018-05-13] MEDS: LANSOPRAZOLE 30 MG TAB.RAP.DR PO SCH (17:52)
[2018-05-13] MEDS ORDERED: CEFEPIME 1 GM/D5W RTU 1 GM/50 ML RTUPB IV SCH (22:00)
[2018-05-13] MEDS: HEPARIN SOD (PORCINE) 5,000 UNIT/ML 1 ML SYRINGE SUBCUT SCH (22:33)
[2018-05-13] MEDS: FUROSEMIDE INJ/PF 20 MG/2 ML SDV IV SCH (22:33)
[2018-05-13] MEDS ORDERED: CEFEPIME 1 GM/D5W RTU 1 GM/50 ML RTUPB IV ONE (22:47)
[2018-05-13] MEDS: TEMAZEPAM 7.5 MG CAPSULE PO SCH (22:52)
[2018-05-14 00:39] LABS: URINE CREATININE 43.7 mg/dL (15-278)
[2018-05-14 05:54] LABS: ABSOLUTE BASOPHILS # (AUTO) 0.1 10^3/uL (0.0-0.2); ABSOLUTE EOSINOPHILS # (AUTO) 0.1 10^3/uL (0.0-0.6); ABSOLUTE LYMPHOCYTES (AUTO) 1.3 10^3/uL (0.5-4.7); ABSOLUTE MONOCYTES (AUTO) 0.7 10^3/uL (0.1-1.4); ABSOLUTE NEUT (AUTO) 9.3 10^3/uL (1.7-8.2); BASOPHILS % (AUTO) 0.8 % (0-2); EOSINOPHILS % (AUTO) 0.8 % (0-6); HEMATOCRIT 39.3 % (36.0-47.0); HEMOGLOBIN 13.4 g/dL (12.0-15.5); MEAN CORPUSCULAR HEMOGLOBIN 35.8 pg (27.0-33.4); MEAN CORPUSCULAR HGB CONC 34.1 g/dL (32.0-36.0); MEAN CORPUSCULAR VOLUME 105 fl (80-97); MONOCYTES % (AUTO) 6.5 % (3-13); PLATELET COUNT 188 10^3/uL (150-450); RED BLOOD COUNT 3.73 10^6/uL (3.72-5.28); RED CELL DISTRIBUTION WIDTH 13.8 % (11.5-14.0); SEGMENTED NEUTROPHILS % (AUTO) 80.9 % (42-78); TOTAL CELLS COUNTED % (AUTO) 100 %; WHITE BLOOD COUNT 11.4 10^3/uL (4.0-10.5)
[2018-05-14] MEDS: FUROSEMIDE INJ/PF 20 MG/2 ML SDV IV SCH ×3 (05:56→22:14)
[2018-05-14] MEDS: LANSOPRAZOLE 30 MG TAB.RAP.DR PO SCH ×2 (05:56→17:13)
[2018-05-14] MEDS: HEPARIN SOD (PORCINE) 5,000 UNIT/ML 1 ML SYRINGE SUBCUT SCH ×3 (05:56→22:15)
[2018-05-14] MEDS: VANCOMYCIN HCL 1,500 MG in DEXTROSE 5%-WATER 250 ML IV SCH ×2 (05:57→17:13)
[2018-05-14 06:19] LABS: ALANINE AMINOTRANSFERASE 42 U/L (9-52); ALBUMIN 2.4 g/dL (3.5-5.0); ALKALINE PHOSPHATASE 182 U/L (38-126); ANION GAP 10 (5-19); ASPARTATE AMINO TRANSFERASE 68 U/L (14-36); BILIRUBIN,DIRECT 3.2 mg/dL (0.0-0.4); BLOOD UREA NITROGEN 10 mg/dL (7-20); CALCIUM 7.8 mg/dL (8.4-10.2); CARBON DIOXIDE 20 mmol/L (22-30); CHLORIDE 103 mmol/L (98-107); GLUCOSE 102 mg/dL (75-110); SODIUM 133.4 mmol/L (137-145); TOTAL PROTEIN 5.8 g/dL (6.3-8.2)
[2018-05-14 06:25] LABS: POTASSIUM 3.4 mmol/L (3.6-5.0)
[2018-05-14] MEDS ORDERED: (PENDING PHARMACY ID) (Bupropion Hcl [Wellbutrin Xl 150 Mg 24hr Tablet] 150 MG) PO SCH (08:00)
[2018-05-14] MEDS: CITALOPRAM HYDROBROMIDE 20 MG TABLET PO SCH (09:47)
[2018-05-14] MEDS: BUPROPION HCL 75 MG TABLET PO SCH ×2 (09:47→22:12)
[2018-05-14] MEDS: FERROUS SULFATE 325 MG TABLET PO SCH ×3 (09:47→17:13)
--- NOTE | 2018-05-14 10:02 | PDOC PROGRESS REPORT ---
Subjective Progress Note for:: 05/14/18 Subjective:: THEODORE BELTRÁN is a 52 year old female past medical history of EtOH abuse , alcoholic cirrhosis, gastric bypass in 1997, chronic anemia. Patient presented to [facility] on 04/09/2018 complaining of worsening jaundice and bilateral lower extremity edema and was diagnosed with alcoholic hepatitis. She was transferred to [facility] [place] for gastroenterology evaluation. She was hospitalized there for 8 days and was diagnosed with cirrhosis due to alcoholism chance that other causes of cirrhosis were ruled out. She was neither intubated nor was any other procedure done. Denies any history of variceal bleeding, SBP or paracentesis. Patient is presenting today complaining of worsening productive cough and shortness of breath associated with nausea dry heaves, worsening bilateral lower extremity edema. He is also complaining of persistent right upper quadrant pain for a month and endorses diarrhea but she states that she is on lactulose for her cirrhosis. She denies any fever, chills, chest pain or any urinary symptoms. She states that she has severe iron deficiency anemia and she was placed on ferrous sulfate for the last several years. She denies any hematemesis, varices or variceal bleeding, hemoptysis, melena, hematochezia 05/14/2018. No acute events overnight. On my encounter patient is comfortably resting in her bed and says she is feeling much better. Denies any more cough as of breath of breath. She states that her abdomen feels much better and her lower extremity edema has also improved. She denies any fever, chills, nausea, vomiting, diarrhea, constipation or any urinary symptoms. Reason For Visit: PNEUMONIA,VOLUME OVERLOAD Physical Exam Vital Signs: Temp Pulse Resp BP Pulse Ox 98.4 F 116 H 14 116/75 95 05/14/18 07:36 05/14/18 09:15 05/14/18 09:15 05/14/18 07:36 05/14/18 09:15 Intake & Output 05/13/18 05/14/18 05/15/18 06:59 06:59 06:59 Intake Total 670 250 Output Total 600 Balance 70 250 Weight 87.8 kg General appearance: PRESENT: no acute distress, well-developed, well-nourished Respiratory exam: PRESENT: clear to auscultation melany. ABSENT: rales, rhonchi, wheezes Cardiovascular exam: PRESENT: RRR. ABSENT: diastolic murmur, rubs, systolic murmur Pulses: PRESENT: normal dorsalis pedis pul GI/Abdominal exam: PRESENT: distended, normal bowel sounds, soft. ABSENT: guarding, mass, organolmegaly, rebound, tenderness Extremities exam: PRESENT: +1 edema Neurological exam: PRESENT: alert, awake, oriented to person, oriented to place , oriented to time, oriented to situation, CN II-XII grossly intact. ABSENT: motor sensory deficit Results Laboratory Results: 05/14/18 04:26 05/14/18 04:26 05/14/18 05/14/18 04:26 04:26 WBC 11.4 H RBC 3.73 Hgb 13.4 Hct 39.3 MCV 105 H MCH 35.8 H MCHC 34.1 RDW 13.8 Plt Count 188 Seg Neutrophils % 80.9 H Lymphocytes % 11.0 L Monocytes % 6.5 Eosinophils % 0.8 Basophils % 0.8 Absolute Neutrophils 9.3 H Absolute Lymphocytes 1.3 Absolute Monocytes 0.7 Absolute Eosinophils 0.1 Absolute Basophils 0.1 Sodium 133.4 L Potassium 3.4 L D Chloride 103 Carbon Dioxide 20 L Anion Gap 10 BUN 10 Creatinine 0.77 Est GFR ( Amer) > 60 Est GFR (Non-Af Amer) > 60 Glucose 102 Calcium 7.8 L Magnesium 1.6 Total Bilirubin 5.0 H AST 68 H ALT 42 Alkaline Phosphatase 182 H Total Protein 5.8 L Albumin 2.4 L Impressions: Chest X-Ray 05/13/18 10:31 IMPRESSION: Low lung volumes with bibasilar atelectasis. Question early or developing right upper lobe pneumonia. Chest/Abdomen CTA 05/13/18 11:40 IMPRESSION: No CT angio evidence of acute pulmonary emboli or thoracic aortic dissection. Minimal airspace disease in the right upper lobe, question early or developing pneumonia. Moderate ascites with nodular liver and splenomegaly from portal hypertension and cirrhosis. Post gastric bypass. Assessment & Plan - Diagnosis (1) Pneumonia Is this a current diagnosis for this admission?: Yes Plan: Healthcare/hospital-acquired pneumonia likely due to recent hospitalization. Prelim blood culture positive for gram-positive cocci. Pending sensitivity. Vanco and Zosyn. Sputum culture negative so far. Nebs. (2) Alcoholic cirrhosis Is this a current diagnosis for this admission?: Yes Plan: Child Salazar score of 11 grade C. Continue lactulose titrate to have 3 soft bowel movement in 24 hours. Monitor volume status and metabolic encephalopathy. Empiric SBP treatment. She is reporting right upper quadrant pain for the last 1 month. No significant ascites appreciated based on physical examination. As per patient other causes of cirrhosis were ruled out in her prior admission at [place]. (3) Volume overload Is this a current diagnosis for this admission?: Yes Plan: Continue IV Lasix guided by her vitals. Monitor electrolytes, volume restriction, strict in and out. Hepatic diet. (4) Hyponatremia Is this a current diagnosis for this admission?: Yes Plan: Improving. Hypervolemic hyponatremic hyponatremia. Ur Na >41, FeNa <1. Patient received Lasix prior to urine sodium evaluation. Due to underlying volume overload caused by liver cirrhosis. Will order urine sodium, urine creatinine. Continue IV Lasix guided by her vital status. CMP tomorrow (5) Depression Is this a current diagnosis for this admission?: No Plan: Denies any suicidal or homicidal ideation. Restart home meds. (6) Tachycardia Is this a current diagnosis for this admission?: Yes Plan: Sinus tachycardia. CTA of chest negative for PE on admission. Will start low- dose beta-blockers.
[2018-05-14] MEDS ORDERED: ONDANSETRON HCL INJ/PF 4 MG/2 ML SDV IV PRN (11:00)
[2018-05-14] MEDS ORDERED: POTASSIUM CHLORIDE 20 MEQ/15 ML UDCUP PO ONE (11:00)
[2018-05-14] MEDS ORDERED: MAGNESIUM SULFATE/D5W 1 GM/100 ML RTUPB IV ONE (11:00)
[2018-05-14] MEDS: PIPERACILLIN SODIUM/TAZOBACTAM 4.5 GM in NORMAL SALINE 100 ML IV SCH ×2 (13:38→17:13)
[2018-05-14] MEDS ORDERED: METOPROLOL TARTRATE 25 MG TABLET PO SCH (22:00)
[2018-05-14] MEDS: TEMAZEPAM 7.5 MG CAPSULE PO SCH (22:11)
[2018-05-14] MEDS: METOPROLOL TARTRATE 25 MG TABLET PO SCH (22:12)
[2018-05-15] MEDS: PIPERACILLIN SODIUM/TAZOBACTAM 4.5 GM in NORMAL SALINE 100 ML IV SCH ×4 (00:26→18:25)
[2018-05-15] MEDS: HEPARIN SOD (PORCINE) 5,000 UNIT/ML 1 ML SYRINGE SUBCUT SCH ×3 (05:32→22:57)
[2018-05-15] MEDS: LANSOPRAZOLE 30 MG TAB.RAP.DR PO SCH ×2 (05:45→18:25)
[2018-05-15] MEDS: VANCOMYCIN HCL 1,500 MG in DEXTROSE 5%-WATER 250 ML IV SCH (06:16)
[2018-05-15 06:41] LABS: VANCOMYCIN,TROUGH 22.1 ug/mL (5.0-20.0)
[2018-05-15 06:43] LABS: ANION GAP 13 (5-19); BLOOD UREA NITROGEN 10 mg/dL (7-20); CALCIUM 7.4 mg/dL (8.4-10.2); CARBON DIOXIDE 18 mmol/L (22-30); CHLORIDE 101 mmol/L (98-107); GLUCOSE 97 mg/dL (75-110)
[2018-05-15 06:45] LABS: POTASSIUM 2.7 mmol/L (3.6-5.0)
[2018-05-15] MEDS: FUROSEMIDE INJ/PF 20 MG/2 ML SDV IV SCH ×2 (06:52→13:51)
[2018-05-15] MEDS ORDERED: POTASSIUM CHLORIDE 20 MEQ/50 ML RTU IV ONE (08:00)
[2018-05-15] MEDS: CITALOPRAM HYDROBROMIDE 20 MG TABLET PO SCH (09:25)
[2018-05-15] MEDS: FERROUS SULFATE 325 MG TABLET PO SCH ×3 (09:25→18:25)
[2018-05-15] MEDS: BUPROPION HCL 75 MG TABLET PO SCH ×2 (09:26→22:57)
[2018-05-15] MEDS: METOPROLOL TARTRATE 25 MG TABLET PO SCH ×2 (09:26→22:56)
[2018-05-15] MEDS ORDERED: POTASSIUM CHLORIDE 10 MEQ CAPSULE.ER PO ONE (11:44)
--- NOTE | 2018-05-15 18:03 | PDOC PROGRESS REPORT ---
Subjective Progress Note for:: 05/15/18 Subjective:: Ms. Chou is a 52 year old female past medical history of alcohol abuse, alcoholic cirrhosis, gastric bypass in 1997, chronic anemia and history of alcoholic hepatitis presented with worsening pedal edema and SOB. She says she has been drinking a lot of water as she was told previously to drink a lot of water at home. She was noted to be fluid overloaded on presentation. She was started on diuretics and had significant improvement. She says her pedal swelling have improved and are almost back to baseline. Her SOB has also resolved. She says her abdomen feels less tight today. Reason For Visit: PNEUMONIA,VOLUME OVERLOAD Physical Exam Vital Signs: Temp Pulse Resp BP Pulse Ox 98.3 F 92 18 110/57 L 100 05/15/18 16:00 05/15/18 16:00 05/15/18 16:00 05/15/18 16:00 05/15/18 16:00 Intake & Output 05/14/18 05/15/18 05/16/18 06:59 06:59 06:59 Intake Total 670 1950 866 Output Total 600 900 Balance 70 1050 866 Weight 193 lb 9.054 oz 190 lb 0.615 oz General appearance: PRESENT: no acute distress, well-developed, well-nourished Head exam: PRESENT: atraumatic, normocephalic Eye exam: PRESENT: conjunctiva pink, EOMI, PERRLA. ABSENT: scleral icterus Ear exam: PRESENT: normal external ear exam Mouth exam: PRESENT: moist, tongue midline Neck exam: ABSENT: carotid bruit, JVD, lymphadenopathy, thyromegaly Respiratory exam: PRESENT: clear to auscultation melany. ABSENT: rales, rhonchi, wheezes Cardiovascular exam: PRESENT: RRR. ABSENT: diastolic murmur, rubs, systolic murmur Pulses: PRESENT: normal dorsalis pedis pul GI/Abdominal exam: PRESENT: ascites, normal bowel sounds, soft. ABSENT: distended, guarding, mass, organolmegaly, rebound, tenderness Rectal exam: PRESENT: deferred Extremities exam: PRESENT: +2 edema Neurological exam: PRESENT: alert, awake, oriented to person, oriented to place , oriented to time, oriented to situation, CN II-XII grossly intact. ABSENT: motor sensory deficit Results Laboratory Results: 05/14/18 04:26 10/23/18 17:00 05/15/18 05/15/18 05/15/18 05:43 16:00 17:00 Sodium 132.0 L Cancelled Cancelled Potassium 2.7 L* Cancelled Cancelled Chloride 101 Cancelled Cancelled Carbon Dioxide 18 L Cancelled Cancelled Anion Gap 13 Cancelled Cancelled BUN 10 Cancelled Cancelled Creatinine 0.78 Cancelled Cancelled Est GFR ( Amer) > 60 Cancelled Cancelled Est GFR (Non-Af Amer) > 60 Cancelled Cancelled Glucose 97 Cancelled Cancelled Calcium 7.4 L Cancelled Cancelled Magnesium Cancelled Cancelled Impressions: Chest X-Ray 05/13/18 10:31 IMPRESSION: Low lung volumes with bibasilar atelectasis. Question early or developing right upper lobe pneumonia. Chest/Abdomen CTA 05/13/18 11:40 IMPRESSION: No CT angio evidence of acute pulmonary emboli or thoracic aortic dissection. Minimal airspace disease in the right upper lobe, question early or developing pneumonia. Moderate ascites with nodular liver and splenomegaly from portal hypertension and cirrhosis. Post gastric bypass. Assessment & Plan - Diagnosis (1) Volume overload Is this a current diagnosis for this admission?: Yes Plan: Secondary to excessive fluid intake at home in the context of end stage liver disease. Patient reports she was told by a nurse amarjit before that she needs to drink a lot of water at home. Currently on lasix 20 mg IV q8. Will revise and add diuretics for cirrhosis as follow: spironolactone 25 mg bid and lasix 20 mg daily. (2) Alcoholic cirrhosis Is this a current diagnosis for this admission?: Yes Plan: Revise diuretics as per #1. Continue lactulose. (3) Hyponatremia Is this a current diagnosis for this admission?: Yes Plan: Improved. Likely related to volume overload from end stage liver disease. (4) Hypokalemia Is this a current diagnosis for this admission?: Yes Plan: Secondary to diuresis with Lasix. Potassium today is 2.7. She was given 20 meqs by cable armorer operator. Added 60 meqs today. Repeat BMP. Will add scheduled Potassium PO replacement. (5) HCAP (healthcare-associated pneumonia) Is this a current diagnosis for this admission?: Yes Plan: On Zosyn and vancomycin. De-escalate pending final culture results. - Time Time Spent with patient: 15-24 minutes
[2018-05-15 19:05] LABS: ANION GAP 10 (5-19); BLOOD UREA NITROGEN 10 mg/dL (7-20); CALCIUM 7.4 mg/dL (8.4-10.2); CARBON DIOXIDE 23 mmol/L (22-30); CHLORIDE 101 mmol/L (98-107); GLUCOSE 102 mg/dL (75-110); SODIUM 133.6 mmol/L (137-145)
[2018-05-15 19:37] LABS: POTASSIUM 2.8 mmol/L (3.6-5.0)
[2018-05-15] MEDS ORDERED: POTASSIUM CHLORIDE 20 MEQ/15 ML UDCUP PO ONE (20:00)
[2018-05-15] MEDS: TEMAZEPAM 7.5 MG CAPSULE PO SCH (22:56)
[2018-05-15] MEDS: SPIRONOLACTONE 25 MG TABLET PO SCH (22:56)
[2018-05-15] MEDS: POTASSI CL 20 MEQ/50 ML RIDER 20 MEQ/50 ML RTUPB IV SCH (23:12)
[2018-05-16] MEDS: POTASSI CL 20 MEQ/50 ML RIDER 20 MEQ/50 ML RTUPB IV SCH (02:04)
[2018-05-16] MEDS ORDERED: POTASSIUM CHLORIDE 20 MEQ/15 ML UDCUP PO ONE ×2 (04:00)
[2018-05-16] MEDS ORDERED: PIPERACILLIN SODIUM/TAZOBACTAM 4.5 GM in NORMAL SALINE 100 ML IV ONE (04:00)
[2018-05-16] MEDS ORDERED: POTASSI CL 20 MEQ/50 ML RIDER 20 MEQ/50 ML RTUPB IV SCH ×2 (04:00)
[2018-05-16] MEDS: PIPERACILLIN SODIUM/TAZOBACTAM 4.5 GM in NORMAL SALINE 100 ML IV SCH (04:09)
[2018-05-16] MEDS ORDERED: VANCOMYCIN HCL 1,000 MG in DEXTROSE 5%-WATER 250 ML IV SCH (06:00)
[2018-05-16] MEDS: HEPARIN SOD (PORCINE) 5,000 UNIT/ML 1 ML SYRINGE SUBCUT SCH ×3 (06:04→21:16)
[2018-05-16] MEDS: LANSOPRAZOLE 30 MG TAB.RAP.DR PO SCH ×2 (06:06→15:59)
[2018-05-16 06:28] LABS: ANION GAP 12 (5-19); BLOOD UREA NITROGEN 10 mg/dL (7-20); CALCIUM 7.4 mg/dL (8.4-10.2); CARBON DIOXIDE 19 mmol/L (22-30); CHLORIDE 104 mmol/L (98-107); GLUCOSE 91 mg/dL (75-110); POTASSIUM 3.2 mmol/L (3.6-5.0); SODIUM 134.9 mmol/L (137-145)
[2018-05-16] MEDS ORDERED: PIPERACILLIN SODIUM/TAZOBACTAM 4.5 GM in NORMAL SALINE 100 ML IV SCH (09:00)
[2018-05-16] MEDS: SPIRONOLACTONE 25 MG TABLET PO SCH ×2 (09:33→21:17)
[2018-05-16] MEDS: FERROUS SULFATE 325 MG TABLET PO SCH ×3 (09:33→17:46)
[2018-05-16] MEDS: CITALOPRAM HYDROBROMIDE 20 MG TABLET PO SCH (09:33)
[2018-05-16] MEDS: BUPROPION HCL 75 MG TABLET PO SCH ×2 (09:34→21:17)
[2018-05-16] MEDS: METOPROLOL TARTRATE 25 MG TABLET PO SCH ×2 (09:34→22:13)
[2018-05-16] MEDS ORDERED: POTASSIUM CHLORIDE 10 MEQ CAPSULE.ER PO ONE (10:00)
[2018-05-16] MEDS ORDERED: FUROSEMIDE 20 MG TABLET PO SCH (10:00)
[2018-05-16] MEDS ORDERED: POTASSIUM CHLORIDE 20 MEQ/15 ML UDCUP PO SCH (10:00)
[2018-05-16] MEDS ORDERED: LEVOFLOXACIN 500 MG TABLET PO SCH (14:00)
[2018-05-16 14:40] LABS: ABSOLUTE EOSINOPHILS # (AUTO) 0.2 10^3/uL (0.0-0.6); ABSOLUTE MONOCYTES (AUTO) 0.8 10^3/uL (0.1-1.4); ABSOLUTE NEUT (AUTO) 8.5 10^3/uL (1.7-8.2); BASOPHILS % (AUTO) 0.2 % (0-2); EOSINOPHILS % (AUTO) 1.7 % (0-6); HEMATOCRIT 41.4 % (36.0-47.0); HEMOGLOBIN 14.2 g/dL (12.0-15.5); LYMPHOCYTES % (AUTO) 9.1 % (13-45); MEAN CORPUSCULAR HEMOGLOBIN 35.7 pg (27.0-33.4); MEAN CORPUSCULAR HGB CONC 34.3 g/dL (32.0-36.0); MEAN CORPUSCULAR VOLUME 104 fl (80-97); MONOCYTES % (AUTO) 7.5 % (3-13); PLATELET COUNT 160 10^3/uL (150-450); RED BLOOD COUNT 3.97 10^6/uL (3.72-5.28); RED CELL DISTRIBUTION WIDTH 13.6 % (11.5-14.0); SEGMENTED NEUTROPHILS % (AUTO) 81.5 % (42-78); TOTAL CELLS COUNTED % (AUTO) 100 %; WHITE BLOOD COUNT 10.4 10^3/uL (4.0-10.5)
[2018-05-16 14:54] LABS: ANION GAP 9 (5-19); BLOOD UREA NITROGEN 11 mg/dL (7-20); CALCIUM 7.8 mg/dL (8.4-10.2); CARBON DIOXIDE 21 mmol/L (22-30); CHLORIDE 105 mmol/L (98-107); GLUCOSE 104 mg/dL (75-110); POTASSIUM 3.8 mmol/L (3.6-5.0); SODIUM 135.1 mmol/L (137-145)
--- NOTE | 2018-05-16 15:25 | PDOC PROGRESS REPORT ---
Subjective Progress Note for:: 05/16/18 Subjective:: Ms. Chou is a 52 year old female past medical history of alcohol abuse, alcoholic cirrhosis, gastric bypass in 1997, chronic anemia and history of alcoholic hepatitis presented with worsening pedal edema and SOB. She says she has been drinking a lot of water as she was told previously to drink a lot of water at home. She was noted to be fluid overloaded on presentation. She was started on diuretics and had significant improvement. She says her pedal swelling and is now back to baseline. Her SOB has also resolved. She says her abdomen feels significanlty less tight and feels like she is at her baseline today. She was hypokalemic again earlier this morning. Reason For Visit: PNEUMONIA,VOLUME OVERLOAD Physical Exam Vital Signs: Temp Pulse Resp BP Pulse Ox 97.9 F 84 16 91/60 L 95 05/16/18 11:44 05/16/18 11:44 05/16/18 11:44 05/16/18 11:44 05/16/18 11:44 Intake & Output 05/15/18 05/16/18 05/17/18 06:59 06:59 06:59 Intake Total 1950 1266 350 Output Total 900 Balance 1050 1266 350 Weight 190 lb 0.615 oz 192 lb 3.889 oz General appearance: PRESENT: no acute distress, well-developed, well-nourished Head exam: PRESENT: atraumatic, normocephalic Eye exam: PRESENT: conjunctiva pink, EOMI, PERRLA. ABSENT: scleral icterus Ear exam: PRESENT: normal external ear exam Mouth exam: PRESENT: moist, tongue midline Neck exam: ABSENT: carotid bruit, JVD, lymphadenopathy, thyromegaly Respiratory exam: PRESENT: clear to auscultation melany. ABSENT: rales, rhonchi, wheezes Cardiovascular exam: PRESENT: RRR. ABSENT: diastolic murmur, rubs, systolic murmur Pulses: PRESENT: normal dorsalis pedis pul GI/Abdominal exam: PRESENT: ascites, distended - significantly improved, normal bowel sounds, soft. ABSENT: guarding, mass, organolmegaly, rebound, tenderness Rectal exam: PRESENT: deferred Extremities exam: PRESENT: +1 edema Neurological exam: PRESENT: alert, awake, oriented to person, oriented to place , oriented to time, oriented to situation, CN II-XII grossly intact. ABSENT: motor sensory deficit Results Laboratory Results: 05/16/18 14:03 05/16/18 14:03 05/15/18 05/15/18 05/15/18 16:00 17:00 18:40 WBC RBC Hgb Hct MCV MCH MCHC RDW Plt Count Seg Neutrophils % Lymphocytes % Monocytes % Eosinophils % Basophils % Absolute Neutrophils Absolute Lymphocytes Absolute Monocytes Absolute Eosinophils Absolute Basophils Sodium Cancelled Cancelled 133.6 L Potassium Cancelled Cancelled 2.8 L* Chloride Cancelled Cancelled 101 Carbon Dioxide Cancelled Cancelled 23 Anion Gap Cancelled Cancelled 10 BUN Cancelled Cancelled 10 Creatinine Cancelled Cancelled 0.92 Est GFR ( Amer) Cancelled Cancelled > 60 Est GFR (Non-Af Amer) Cancelled Cancelled > 60 Glucose Cancelled Cancelled 102 Calcium Cancelled Cancelled 7.4 L Magnesium Cancelled Cancelled 1.6 05/16/18 05/16/18 05/16/18 05:40 14:03 14:03 WBC 10.4 RBC 3.97 Hgb 14.2 Hct 41.4 MCV 104 H MCH 35.7 H MCHC 34.3 RDW 13.6 Plt Count 160 Seg Neutrophils % 81.5 H Lymphocytes % 9.1 L Monocytes % 7.5 Eosinophils % 1.7 Basophils % 0.2 Absolute Neutrophils 8.5 H Absolute Lymphocytes 1.0 Absolute Monocytes 0.8 Absolute Eosinophils 0.2 Absolute Basophils 0.0 Sodium 134.9 L 135.1 L Potassium 3.2 L 3.8 Chloride 104 105 Carbon Dioxide 19 L 21 L Anion Gap 12 9 BUN 10 11 Creatinine 0.83 0.87 Est GFR ( Amer) > 60 > 60 Est GFR (Non-Af Amer) > 60 > 60 Glucose 91 104 Calcium 7.4 L 7.8 L Magnesium Impressions: Chest X-Ray 05/13/18 10:31 IMPRESSION: Low lung volumes with bibasilar atelectasis. Question early or developing right upper lobe pneumonia. Chest/Abdomen CTA 05/13/18 11:40 IMPRESSION: No CT angio evidence of acute pulmonary emboli or thoracic aortic dissection. Minimal airspace disease in the right upper lobe, question early or developing pneumonia. Moderate ascites with nodular liver and splenomegaly from portal hypertension and cirrhosis. Post gastric bypass. Assessment & Plan - Diagnosis (1) Volume overload Is this a current diagnosis for this admission?: Yes Plan: Resolved. Secondary to excessive fluid intake at home in the context of end stage liver disease. Patient reports she was told by a nurse somewhere before that she needs to drink a lot of water at home. Diuretics for cirrhosis have been revised as follow: spironolactone 25 mg bid and lasix 20 mg daily. (2) Alcoholic cirrhosis Is this a current diagnosis for this admission?: Yes Plan: Revised diuretics as per #1. Continue lactulose. (3) Hyponatremia Is this a current diagnosis for this admission?: Yes Plan: Resolved. Likely related to volume overload from end stage liver disease. (4) Hypokalemia Is this a current diagnosis for this admission?: Yes Plan: Secondary to diuresis with Lasix. Potassium today this morning was slightly albeit significantly improved at 3.2. Continue potassium replacement. Her potassium is expected to continue to recover and improve now that lasix was decreased and spironolactone was added. (5) HCAP (healthcare-associated pneumonia) Is this a current diagnosis for this admission?: Yes Plan: Discontinue Zosyn and vancomycin. Switch to PO Levaquin. Final blood culture will be resulted tomorrow (gram positive cocci 1/2 ??contamination). - Time Time Spent with patient: 15-24 minutes
[2018-05-16] MEDS: TEMAZEPAM 7.5 MG CAPSULE PO SCH (21:17)
[2018-05-17] MEDS: HEPARIN SOD (PORCINE) 5,000 UNIT/ML 1 ML SYRINGE SUBCUT SCH (05:58)
[2018-05-17] MEDS: LANSOPRAZOLE 30 MG TAB.RAP.DR PO SCH (05:59)
[2018-05-17 06:24] LABS: ANION GAP 11 (5-19); BLOOD UREA NITROGEN 10 mg/dL (7-20); CALCIUM 7.1 mg/dL (8.4-10.2); CARBON DIOXIDE 21 mmol/L (22-30); CHLORIDE 105 mmol/L (98-107); GLUCOSE 80 mg/dL (75-110); POTASSIUM 3.9 mmol/L (3.6-5.0); SODIUM 137.3 mmol/L (137-145)
[2018-05-17 09:32] VITALS: BP 110/57
[2018-05-17] MEDS ORDERED: FUROSEMIDE 20 MG TABLET PO SCH (10:00)
--- NOTE | 2018-05-17 18:42 | PDOC DISCHARGE SUMMARY ---
General - Admit/Disc Date/PCP Admission Date/Primary Care Provider: 05/13/18 14:03 Discharge Date: 05/17/18 - Discharge Diagnosis (1) Volume overload Is this a current diagnosis for this admission?: Yes (2) Alcoholic cirrhosis Is this a current diagnosis for this admission?: Yes (3) Hyponatremia Is this a current diagnosis for this admission?: Yes (4) Hypokalemia Is this a current diagnosis for this admission?: Yes (5) HCAP (healthcare-associated pneumonia) Is this a current diagnosis for this admission?: Yes - Additional Information Resuscitation Status: Full Code Discharge Diet: As Tolerated Discharge Activity: Activity As Tolerated, Balance Activity w/Rest Prescriptions: Furosemide [Lasix 20 mg Tablet] 10 mg PO DAILY #30 tablet Lactulose [Cephulac Syrup 20 gm/30 ml Udcup] 20 gm PO Q12HP PRN #2 udc PRN Reason: For Constipation Levofloxacin [Levaquin 500 mg Tablet] 500 mg PO DAILY #5 tablet Spironolactone [Aldactone 25 mg Tablet] 12.5 mg PO Q12 #60 tablet Home Medications: Bupropion HCl [Wellbutrin Xl 150 mg 24hr Tablet] 150 mg PO QAM 05/13/18 Citalopram Hydrobromide [Celexa 20 mg Tablet] 20 mg PO DAILY 05/13/18 Ferrous Sulfate [Feosol 325 mg Tablet] 325 mg PO TID 05/13/18 Multivitamin [Daily Multiple Vitamin] 1 tab PO DAILY 05/13/18 Furosemide [Lasix 20 mg Tablet] 10 mg PO DAILY #30 tablet 05/17/18 Lactulose [Cephulac Syrup 20 gm/30 ml Udcup] 20 gm PO Q12HP PRN #2 udc 05/17/18 Levofloxacin [Levaquin 500 mg Tablet] 500 mg PO DAILY #5 tablet 05/17/18 Spironolactone [Aldactone 25 mg Tablet] 12.5 mg PO Q12 #60 tablet 05/17/18 History of Present Illness History of Present Illness: THEODORE CHOU is a 52 year old female past medical history of EtOH abuse , alcoholic cirrhosis, gastric bypass in 1997, chronic anemia. Patient presented to [facility] on 04/09/2018 complaining of worsening jaundice and bilateral lower extremity edema and was diagnosed with alcoholic hepatitis. She was transferred to [facility] for gastroenterology evaluation. She was hospitalized there for 8 days and was diagnosed with cirrhosis due to alcoholism chance that other causes of cirrhosis were ruled out. She was neither intubated nor was any other procedure done. Denies any history of variceal bleeding, SBP or paracentesis. Patient is presenting today complaining of worsening productive cough and shortness of breath associated with nausea dry heaves, worsening bilateral lower extremity edema. He is also complaining of persistent right upper quadrant pain for a month and endorses diarrhea but she states that she is on lactulose for her cirrhosis. She denies any fever, chills, chest pain or any urinary symptoms. She states that she has severe iron deficiency anemia and she was placed on ferrous sulfate for the last several years. She denies any hematemesis, varices or variceal bleeding, hemoptysis, melena, hematochezia. Hospital Course Hospital Course: Ms. Chou is a 52 year old female past medical history of alcohol abuse, alcoholic cirrhosis, gastric bypass in 1997, chronic anemia and history of alcoholic hepatitis presented with worsening pedal edema and SOB. She says she has been drinking a lot of water as she was told previously to drink a lot of water at home. She was noted to be fluid overloaded on presentation. She was started initially on Iv Lasix and did have significant improvement. Her pedal swelling did came back to baseline. Her SOB has also resolved. She had moderate ascites on CT and had increase in her abdominal distention from baseline. However, she responded well to diuretics with significant improvement of ascites and she was back to her baseline hence did not require paracentesis. She did have hypokalemia from the Lasix ands her diuretics were revised to include spironolactone and lower dose of Lasix as appropriate for cirrhosis. She did diurese well and diuretic dose were reduced due to her low normal blood pressures. She will be discharged on reduced dose of lasix 10 mg daily and spironolactone 12.5 mg bid. She will closely follow up with her PCP next week for uptitration of her diuretics. She was also initially started on vancomycin and Zosyn for right sided HCAP. She will be sent home on PO Levaquin. Blood culture grew S. mitis 1/2 bottles which is deemed as contaminant as the organism is a normal skin ketty. Physical Exam Vital Signs: Temp Pulse Resp BP Pulse Ox 99.0 F 110 H 20 110/57 L 100 05/17/18 09:30 05/17/18 09:30 05/17/18 09:30 05/17/18 09:30 05/17/18 09:30 Intake & Output 05/16/18 05/17/18 05/18/18 06:59 06:59 06:59 Intake Total 1266 1440 Balance 1266 1440 Weight 192 lb 3.889 oz 192 lb 14.472 oz General appearance: PRESENT: no acute distress, well-developed, well-nourished Head exam: PRESENT: atraumatic, normocephalic Eye exam: PRESENT: conjunctiva pink, EOMI, PERRLA. ABSENT: scleral icterus Ear exam: PRESENT: normal external ear exam Mouth exam: PRESENT: moist, tongue midline Neck exam: ABSENT: carotid bruit, JVD, lymphadenopathy, thyromegaly Respiratory exam: PRESENT: clear to auscultation melany. ABSENT: rales, rhonchi, wheezes Cardiovascular exam: PRESENT: RRR. ABSENT: diastolic murmur, rubs, systolic murmur Pulses: PRESENT: normal dorsalis pedis pul GI/Abdominal exam: PRESENT: ascites, normal bowel sounds, soft. ABSENT: distended, guarding, mass, rebound, tenderness Rectal exam: PRESENT: deferred Neurological exam: PRESENT: alert, awake, oriented to person, oriented to place , oriented to time, oriented to situation, CN II-XII grossly intact. ABSENT: motor sensory deficit Results Laboratory Results: 05/16/18 14:03 05/17/18 04:42 05/17/18 04:42 Sodium 137.3 Potassium 3.9 Chloride 105 Carbon Dioxide 21 L Anion Gap 11 BUN 10 Creatinine 0.67 Est GFR ( Amer) > 60 Est GFR (Non-Af Amer) > 60 Glucose 80 Calcium 7.1 L Impressions: Chest X-Ray 05/13/18 10:31 IMPRESSION: Low lung volumes with bibasilar atelectasis. Question early or developing right upper lobe pneumonia. Chest/Abdomen CTA 05/13/18 11:40 IMPRESSION: No CT angio evidence of acute pulmonary emboli or thoracic aortic dissection. Minimal airspace disease in the right upper lobe, question early or developing pneumonia. Moderate ascites with nodular liver and splenomegaly from portal hypertension and cirrhosis. Post gastric bypass. Qualifiers - * PATIENT BEING DISCHARGED WITH ANY OF THE FOLLOWING DIAGNOSIS: No
== END 2018-05-17 10:00 | disposition home health service (06) | DRG 640 ==
LOC: ER 10:12 → EH 14:03 → 5 15:41
PROVIDERS: ADMIT Emergency Medicine; ATTEND Emergency Medicine
PROC: 3E0F73Z Introduction of Anti-inflammatory into Respiratory Tract, Via Natural or Artificial Opening (ICD-10-PCS; principal; 2018-05-13)
DX: E87.70 Fluid overload, unspecified (principal); J18.9 Pneumonia, unspecified organism; E87.1 Hypo-osmolality and hyponatremia; K70.31 Alcoholic cirrhosis of liver with ascites; E87.6 Hypokalemia; F10.10 Alcohol abuse, uncomplicated; E11.9 Type 2 diabetes mellitus without complications; D50.9 Iron deficiency anemia, unspecified; E66.01 Morbid (severe) obesity due to excess calories; Z98.84 Bariatric surgery status; Z90.49 Acquired absence of other specified parts of digestive tract; Z90.710 Acquired absence of both cervix and uterus
CPT/HCPCS: 36415; 71046; 71275; 80048; 80053; 80202; 82570; 82607; 82746; 82962; 83036; 83690; 83735; 84300; 85025; 85610; 85730; 87040; 87077; 87186; 93005; 93010; 94640; 96374; 99285; J0692; J1644; J1940; J2543; J3370; J3475; J3480; J3490; J7060; J7620

== ENCOUNTER 2018-06-22 16:23 | Inpatient (IN) | payer OTHER ==
--- NOTE | 2018-06-22 18:17 | ER Document Report ---
ED Medical Screen (RME) - General Chief Complaint: Post Surgical Bleeding Stated Complaint: WOUND CHECK Time Seen by Provider: 06/22/18 18:09 Notes: 52 years old female with cirrhosis of the liver, with multiple paracenteses due to ascites presents today with distention of the abdomen as well as leaking of fluid from her earlier paracentesis site. Otherwise no fever chills. TRAVEL OUTSIDE OF THE [place] IN LAST 30 DAYS: No - Related Data Allergies/Adverse Reactions: No Known Allergies Allergy (Verified 06/22/18 16:23) Past Medical History Pulmonary Medical History: Reports: Hx Asthma Endocrine Medical History: Reports: Hx Diabetes Mellitus Type 2 Renal/ Medical History: Denies: Hx Peritoneal Dialysis GI Medical History: Reports: Hx Cirrhosis Psychiatric Medical History: Reports: Hx Depression Past Surgical History: Reports: Hx Abdominal Surgery - gastric bypass, Hx Appendectomy, Hx Cholecystectomy, Hx Hysterectomy, Hx Tonsillectomy Physical Exam - Vital signs Vitals: Temp Pulse Resp BP Pulse Ox 97.6 F 100 18 92/60 L 95 06/22/18 16:33 06/22/18 16:33 06/22/18 16:33 06/22/18 16:33 06/22/18 16:33 Course - Vital Signs Vital signs: Temp Pulse Resp BP Pulse Ox 97.6 F 100 18 92/60 L 95 06/22/18 16:33 06/22/18 16:33 06/22/18 16:33 06/22/18 16:33 06/22/18 16:33
[2018-06-22 18:47] LABS: HEMATOCRIT 42.1 % (36.0-47.0); HEMOGLOBIN 14.3 g/dL (12.0-15.5); MEAN CORPUSCULAR HEMOGLOBIN 32.7 pg (27.0-33.4); MEAN CORPUSCULAR VOLUME 96 fl (80-97); RED BLOOD COUNT 4.38 10^6/uL (3.72-5.28); RED CELL DISTRIBUTION WIDTH 14.6 % (11.5-14.0); WHITE BLOOD COUNT 14.3 10^3/uL (4.0-10.5)
[2018-06-22 19:04] LABS: PLATELET COUNT 192 10^3/uL (150-450)
[2018-06-22 19:05] LABS: ALANINE AMINOTRANSFERASE 33 U/L (9-52); ALBUMIN 2.5 g/dL (3.5-5.0); ALKALINE PHOSPHATASE 212 U/L (38-126); ANION GAP 15 (5-19); ASPARTATE AMINO TRANSFERASE 68 U/L (14-36); BILIRUBIN,DIRECT 3.5 mg/dL (0.0-0.4); BILIRUBIN,TOTAL 5.2 mg/dL (0.2-1.3); BLOOD UREA NITROGEN 26 mg/dL (7-20); CALCIUM 8.7 mg/dL (8.4-10.2); CARBON DIOXIDE 21 mmol/L (22-30); CHLORIDE 94 mmol/L (98-107); GLUCOSE 94 mg/dL (75-110); SODIUM 130.2 mmol/L (137-145); TOTAL PROTEIN 7.2 g/dL (6.3-8.2)
[2018-06-22 19:09] LABS: ABSOLUTE LYMPHOCYTES# (MANUAL) 1.6 10^3/uL (0.5-4.7); ABSOLUTE MONOCYTES # (MANUAL) 0.4 10^3/uL (0.1-1.4); ABSOLUTE NEUTROPHILS# (MANUAL) 12.3 10^3/uL (1.7-8.2); BAND NEUTROPHILS % (MANUAL) 2 % (3-5); BASOPHILS % (MANUAL) 0 % (0-2); EOSINOPHILS % (MANUAL) 0 % (0-6); LYMPHOCYTES % (MANUAL) 10 % (13-45); MONOCYTES % (MANUAL) 3 % (3-13); SEGMENTED NEUTROPHILS % (MAN) 84 % (42-78); TOTAL CELLS COUNTED 100
[2018-06-22 19:11] LABS: ANISOCYTOSIS SLIGHT; PLATELET COMMENT ADEQUATE; TOXIC GRANULATION 1+
[2018-06-22] MEDS ORDERED: RINGERS SOLUTION,LACTATED 1,000 ML IV ONE (19:40)
[2018-06-22] MEDS ORDERED: CEFTRIAXONE INJ 1000 MG VIAL IV ONE (19:42)
[2018-06-22] MEDS ORDERED: METRONIDAZOLE 500 MG/NS RTU 500 MG/100 ML RTUPB IV ONE (19:42)
--- NOTE | 2018-06-22 19:48 | ER Document Report ---
ED General - General Chief Complaint: Post Surgical Bleeding Stated Complaint: WOUND CHECK Time Seen by Provider: 06/22/18 18:09 Notes: Patient is a 52-year-old female with a past medical history of alcoholic liver cirrhosis with associated ascites who presents with 48 hours of progressively worsening abdominal pain, swelling, and nausea. The patient describes the pain as being a diffuse, aching, stabbing pain to her abdomen. Touching the area worsens the pain. Nothing improves the pain. Denies a history of pain this bad in the past. States that she had a therapeutic paracentesis performed in the emergency department Pending Sale To [facility] 1 week ago at which time apparently 7 L was removed but she did not receive albumin. She has not yet followed up with her primary care doctor regarding today's concerns. She denies fever. TRAVEL OUTSIDE OF THE [place] IN LAST 30 DAYS: No - Related Data Allergies/Adverse Reactions: No Known Allergies Allergy (Verified 06/22/18 16:23) Past Medical History - General Information source: Patient, Relative - Social History Smoking Status: Never Smoker Chew tobacco use (# tins/day): No Frequency of alcohol use: None Drug Abuse: None Lives with: Spouse/Significant other Family History: Reviewed & Not Pertinent Patient has suicidal ideation: No Patient has homicidal ideation: No Pulmonary Medical History: Reports: Hx Asthma Endocrine Medical History: Reports: Hx Diabetes Mellitus Type 2 Renal/ Medical History: Denies: Hx Peritoneal Dialysis GI Medical History: Reports: Hx Cirrhosis Psychiatric Medical History: Reports: Hx Depression Past Surgical History: Reports: Hx Abdominal Surgery - gastric bypass, Hx Appendectomy, Hx Cholecystectomy, Hx Hysterectomy, Hx Tonsillectomy Review of Systems - Review of Systems Notes: Constitutional: Negative for fever. HENT: Negative for sore throat. Eyes: Negative for visual changes. Cardiovascular: Negative for chest pain. Respiratory: Negative for shortness of breath. Gastrointestinal: Positive for abdominal pain Genitourinary: Negative for dysuria. Musculoskeletal: Negative for back pain. Skin: Negative for rash. Neurological: Negative for headaches, weakness or numbness. 10 point ROS negative except as marked above and in HPI. Physical Exam - Vital signs Vitals: Temp Pulse Resp BP Pulse Ox 97.6 F 100 18 92/60 L 95 06/22/18 16:33 06/22/18 16:33 06/22/18 16:33 06/22/18 16:33 06/22/18 16:33 Interpretation: Hypotensive Notes: PHYSICAL EXAMINATION: GENERAL: Appears somewhat ill but in no acute distress HEAD: Atraumatic, normocephalic. EYES: Pupils equal round and reactive to light, extraocular movements intact, sclera mildly icteric, conjunctiva are normal. ENT: nares patent, oropharynx clear without exudates. Moderately dry mucous membranes. NECK: Normal range of motion, supple without lymphadenopathy LUNGS: Breath sounds clear to auscultation bilaterally and equal. No wheezes rales or rhonchi. HEART: Regular tachycardia without murmurs ABDOMEN: Somewhat diffusely distended abdomen with positive fluid wave and diffuse tenderness without localization. Caput medusa present. EXTREMITIES: Normal range of motion, no pitting or edema. No cyanosis. NEUROLOGICAL: No focal neurological deficits. Moves all extremities spontaneously and on command. PSYCH: Normal mood, normal affect. SKIN: Warm, Dry, normal turgor, small puncture wound in the right lower quadrant of the abdomen Course - Re-evaluation Re-evalutation: 06/22/18 19:46 Presentation of a moderately ill-appearing 52-year-old patient with findings overall worrisome for a therapeutic paracentesis associated bacterial peritonitis. Patient's diffuse abdominal pain and some rigidity. She had a therapeutic paracentesis with in the past 1 week. Labs are notable for a leukocytosis with an associated bandemia. She is tachycardic at time of presentation but afebrile. A diagnostic paracentesis has been performed under sterile conditions. The fluid does appear somewhat cloudy. The patient has been started on ceftriaxone and metronidazole for initial coverage of what I suspect to be acute peritonitis. 06/22/18 20:51 Paracentesis fluid without evidence of bacterial peritonitis. Will proceed with CT the abdomen pelvis with IV contrast given the patient's diffuse abdominal pain and leukocytosis as well as tachycardia. 06/22/18 22:10 Paracentesis is without evidence of bacterial peritonitis. CT the abdomen pelvis likewise unremarkable. Labs do show elevated lactate at 3.9. Concern for possible hepatorenal syndrome particular given her initial hypotension although this could be secondary to having per the patient's report 7 L drawn off without albumin infusion. I discussed with the hospitalist Dr. Cohen who has accepted the patient for admission. - Vital Signs Vital signs: Temp Pulse Resp BP Pulse Ox 98.7 F 100 18 89/79 L 95 06/22/18 23:01 06/22/18 16:33 06/22/18 23:23 06/22/18 23:23 06/22/18 16:33 - Laboratory Result Diagrams: 06/22/18 18:32 06/22/18 18:32 Laboratory results interpreted by me: 06/22/18 06/22/18 06/22/18 18:32 18:32 20:36 WBC 14.3 H RDW 14.6 H Seg Neuts % (Manual) 84 H Band Neutrophils % 2 L Lymphocytes % (Manual) 10 L Abs Neuts (Manual) 12.3 H Sodium 130.2 L Chloride 94 L Carbon Dioxide 21 L BUN 26 H Creatinine 1.61 H Est GFR ( Amer) 40 L Est GFR (Non-Af Amer) 33 L Lactic Acid 3.9 H Total Bilirubin 5.2 H Direct Bilirubin 3.5 H AST 68 H Alkaline Phosphatase 212 H Albumin 2.5 L - Diagnostic Test Radiology reviewed: Reports reviewed Procedures - Paracentesis RLQ Consent obtained: Yes - Verbal Paracentesis pre-procedure: Sterile PPE donned, Chloraprep applied, Sterile drapes applied Needle size: 18 Paracentesis location: Right lower quadrant Amount/type of drainage: 10 cc, yellow, cloudy Number of attempts: 1 Ultrasound guided: Yes Complications: No Discharge - Discharge Clinical Impression: Generalized abdominal pain, Acute kidney injury Alcoholic cirrhosis of liver Qualifiers: Ascites presence: with ascites Qualified Code(s): K70.31 - Alcoholic cirrhosis of liver with ascites Condition: Fair Disposition: ADMITTED INPATIENT Admitting Provider: Hospitalist Unit Admitted: Telemetry
[2018-06-22 20:29] LABS: FLUID COLOR YELLOW
[2018-06-22 20:30] LABS: FLUID APPEARANCE HAZY; FLUID VISCOSITY SLIGHTLY VISCOUS
[2018-06-22] MEDS: MORPHINE SULFATE 10 MG/ML INJ IV PRN (20:43)
--- NOTE | 2018-06-22 21:48 | RADIOLOGY REPORT (SQ) ---
EXAM DESCRIPTION: CT ABDOMEN PELVIS WITH IV CONTRAST COMPLETED DATE/TME: 06/22/2018 20:46 CLINICAL HISTORY: 52 years, Female, diffuse abdominal pain, ascites Compared to CT abdomen pelvis dated 04/09/2018. This exam was performed according to our departmental dose-optimization program which includes automated exposure control, adjustment of the mA and/or kVp according to patient size and/or use of iterative reconstruction technique where applicable. FINDINGS: Moderate left pleural effusion with left basilar atelectasis. Large amount of abdominal and pelvic ascites is noted. Liver, spleen, pancreas, adrenal glands and kidneys are within normal limits. No hydronephrosis or biliary dilatation. Status post cholecystectomy. Gastric bypass is noted. No dilated loops of bowel. There is a filling defect in the right SFV which is suspicious for thrombosis. There is also moderate right thigh subcutaneous edema noted. The iliac veins appear patent and enhance normally. IVC is patent. IMPRESSION: Large amount of abdominal and pelvic ascites. This is significantly increased from the prior study. No focal fluid collections. No evidence for bowel obstruction. Moderate left pleural effusion. Right SFV acute/subacute thrombosis is noted, does not extend to the iliac veins or IVC. Correlate clinically for acuity.
[2018-06-22] MEDS ORDERED: LACTULOSE SYRUP 20 GM/30 ML UDCUP PO ONE (23:39)
[2018-06-22] MEDS ORDERED: PROMETHAZINE HCL INJ 25 MG/1 ML VIAL IV PRN (23:41)
[2018-06-22] MEDS ORDERED: ACETAMINOPHEN 325 MG TABLET PO PRN (23:41)
[2018-06-22] MEDS ORDERED: OXYCODONE-ACETAMINOPHEN 5-325 MG TABLET PO PRN (23:41)
[2018-06-22] MEDS ORDERED: PROMETHAZINE HCL 25 MG TABLET PO PRN (23:41)
[2018-06-22] MEDS ORDERED: MAG HYDROX/AL HYDROX/SIMETH SUSP 30 ML UDCUP PO PRN (23:41)
[2018-06-22] MEDS ORDERED: IPRATROPIUM/ALBUTEROL 0.5-2.5 MG/3 ML AMPUL NEB PRN (23:41)
[2018-06-22] MEDS ORDERED: HYDROMORPHONE HCL INJ/PF 2 MG/ML AMPULE IV PRN (23:48)
[2018-06-22] MEDS ORDERED: PHYTONADIONE 5 MG TABLET PO ONE (23:48)
[2018-06-23] MEDS: ALBUMIN HUMAN 12.5 GM/50 ML RTUINJ IV SCH ×4 (00:11→05:54)
--- NOTE | 2018-06-23 02:34 | PDOC H&P ---
History of Present Illness Admission Date/PCP: 06/22/18 22:[address] Marquez Patient complains of: Abdominal pain History of Present Illness: THEODORE BELTRÁN is a 52 year old female with medical history remarkable for alcoholic liver cirrhosis with associated ascites presented to the emergency department after 2 days of worsening diffuse abdominal pain more in the left lower quadrant, swelling and nausea but no vomiting. Patient describes her abdominal pain as diffuse aching, stabbing, very tender to palpation. 1 week ago patient was on [facility] and 7 L were removed and she did not receive albumin. Patient has noticed a decrease of her urine output and tells me that she drinks tons of water. She also complains of shortness of breath upon ambulation and diffuse chest pain. Deny fevers but she feels very cold, complains of cough when she is laughing. In the emergency department was found with a blood pressure of 89/47 and tachycardic. It was a concern of bacterial peritonitis in the ED and diagnostic paracentesis was done today which was negative for acute peritonitis but prophylactically IV Rocephin and Flagyl was given. Patient with leukocytosis and left shift. CT abdomen and pelvis shows worsening ascites. Patient also shows acute renal failure. Past Medical History Pulmonary Medical History: Reports: Asthma Endocrine Medical History: Reports: Diabetes Mellitus Type 2 GI Medical History: Reports: Cirrhosis Psychiatric Medical History: Reports: Depression Past Surgical History Past Surgical History: Reports: Appendectomy, Cholecystectomy, Hysterectomy, Tonsillectomy Social History Lives with: Spouse/Significant other Smoking Status: Never Smoker Frequency of Alcohol Use: None - History of heavy alcohol use Hx Recreational Drug Use: No Hx Prescription Drug Abuse: No - Advance Directive Resuscitation Status: Full Code Family History Family History: Reviewed & Not Pertinent Parental Family History Reviewed: Yes Children Family History Reviewed: Yes Sibling(s) Family History Reviewed.: Yes Medication/Allergy Home Medications: Citalopram Hydrobromide [Celexa 20 mg Tablet] 20 mg PO DAILY 05/13/18 Ferrous Sulfate [Feosol 325 mg Tablet] 325 mg PO TID 05/13/18 Multivitamin [Daily Multiple Vitamin] 1 tab PO DAILY 05/13/18 Furosemide [Lasix 20 mg Tablet] 10 mg PO DAILY #30 tablet 05/17/18 Lactulose [Cephulac Syrup 20 gm/30 ml Udcup] 20 gm PO Q12HP PRN #2 udc 05/17/18 Allergies/Adverse Reactions: No Known Allergies Allergy (Verified 06/22/18 16:23) Review of Systems Review of Systems: As outlined in the HPI, all others negative Physical Exam Vital Signs: Temp Pulse Resp BP Pulse Ox 98.7 F 100 18 89/79 L 95 06/22/18 23:01 06/22/18 16:33 06/22/18 23:23 06/22/18 23:23 06/22/18 16:33 Intake & Output 06/21/18 06/22/18 06/23/18 06:59 06:59 06:59 Intake Total 50 Balance 50 Additional comments: General appearance: Chronically ill, cachectic, alert and cooperative, and appears to be in no acute distress Head: Normocephalic Eyes: PEERL, EOMI, vision is grossly intact. Ears: External auditory canal and tympanic membranes clear, hearing grossly intact. Nose: No nasal discharge. Throat: Oral cavity and pharynx normal. No inflammation, swelling, exudate or lesions. Neck: Neck supple, nontender without lymphadenopathy, masses or thyromegaly. Cardiac: Normal S1 and S2. No S3, S4 or murmurs. Rhythm is regular and tachycardic. There is pallor. Extremities are cold. Capillary refill is less than 2 seconds. No carotid bruits. Lungs: Clear to auscultation, with limited evaluation with the patient in the related to mobili No masses. No hepatosplenomegaly Extremities: No significant deformity or joint abnormality. 2+ lower extremity pitting edema. Peripheral pulses intact. No varity secondary to severe abdominal pain Abdomen: Severely distended, firm, severe tenderness to superficial palpation. Erythematous area in the left lower quadrant extending to the suprapubic area Neurological: Cranial nerves II through XII grossly intact. Moves all extremities Skin: Skin pale, normal texture and turgor with abdominal erythema, dry. Psychiatric: The mental examination revealed the patient was oriented to person , place, and time. The patient seems to have mild confusion with difficulty explaining me accurately what she is in the hospital and what happened during her recent hospitalizations. Results Laboratory Results: 06/23/18 06/23/18 00:17 01:20 Ammonia Cancelled 15.8 06/22/18 06/22/18 06/22/18 18:32 18:32 19:20 WBC 14.3 H RBC 4.38 Hgb 14.3 Hct 42.1 MCV 96 MCH 32.7 MCHC 34.0 RDW 14.6 H Plt Count 192 Total Counted 100 Seg Neuts % (Manual) 84 H Band Neutrophils % 2 L Lymphocytes % (Manual) 10 L Atypical Lymphs % 1 Monocytes % (Manual) 3 Eosinophils % (Manual) 0 Basophils % (Manual) 0 Abs Neuts (Manual) 12.3 H Abs Lymphs (Manual) 1.6 Abs Monocytes (Manual) 0.4 Absolute Eos (Manual) 0.0 Abs Basophils (Manual) 0.0 Toxic Granulation 1+ Platelet Comment ADEQUATE Anisocytosis SLIGHT Sodium 130.2 L Potassium 4.0 Chloride 94 L Carbon Dioxide 21 L Anion Gap 15 BUN 26 H Creatinine 1.61 H Est GFR ( Amer) 40 L Est GFR (Non-Af Amer) 33 L Glucose 94 Lactic Acid Calcium 8.7 Total Bilirubin 5.2 H Direct Bilirubin 3.5 H AST 68 H ALT 33 Alkaline Phosphatase 212 H Total Protein 7.2 Albumin 2.5 L Fluid Type Fluid Source Fluid Color YELLOW Fluid Appearance HAZY Fluid Viscosity SLIGHTLY VISCOUS Fluid WBC 17 Fluid RBC 1355 Fluid Seg Neutrophils 49 Fluid Lymphocytes 51 Fluid Monocytes 0 Fluid Eosinophils 0 Fluid Basophils 0 06/22/18 20:36 WBC RBC Hgb Hct MCV MCH MCHC RDW Plt Count Total Counted Seg Neuts % (Manual) Band Neutrophils % Lymphocytes % (Manual) Atypical Lymphs % Monocytes % (Manual) Eosinophils % (Manual) Basophils % (Manual) Abs Neuts (Manual) Abs Lymphs (Manual) Abs Monocytes (Manual) Absolute Eos (Manual) Abs Basophils (Manual) Toxic Granulation Platelet Comment Anisocytosis Sodium Potassium Chloride Carbon Dioxide Anion Gap BUN Creatinine Est GFR ( Amer) Est GFR (Non-Af Amer) Glucose Lactic Acid 3.9 H Calcium Total Bilirubin Direct Bilirubin AST ALT Alkaline Phosphatase Total Protein Albumin Fluid Type Fluid Source Fluid Color Fluid Appearance Fluid Viscosity Fluid WBC Fluid RBC Fluid Seg Neutrophils Fluid Lymphocytes Fluid Monocytes Fluid Eosinophils Fluid Basophils Impressions: Abdomen/Pelvis CT 06/22/18 20:46 IMPRESSION: Large amount of abdominal and pelvic ascites. This is significantly increased from the prior study. No focal fluid collections. No evidence for bowel obstruction. Moderate left pleural effusion. Right SFV acute/subacute thrombosis is noted, does not extend to the iliac veins or IVC. Correlate clinically for acuity. Assessment & Plan - Diagnosis (1) Cirrhosis of liver with ascites Qualifiers: Hepatic cirrhosis type: alcoholic cirrhosis Qualified Code(s): K70.31 - Alcoholic cirrhosis of liver with ascites Is this a current diagnosis for this admission?: Yes Plan: Patient comes with emergency department with complaints of abdominal pain, it was suspected that the patient can have his BP, diagnosis paracentesis was done and it was negative however IV Rocephin and Flagyl were given secondary to her symptomatology and leukocytosis with left shift. I will continue with IV antibiotics. Patient has severe ascites that will require paracentesis however she has been hypotensive with a blood pressure in 89/47, she looks volume depleted and after her paracentesis a week ago of 7 L no albumin was given so we will go ahead and give her 50 g of IV albumin with close monitoring of her blood pressure. Patient also has a possible lower abdomen cellulitis, she has no redness and patient describe tenderness to palpation, patient will be covered with IV Rocephin. There is also a concern for hepatorenal syndrome with the patient has ascites with acute renal failure, some mental confusion, has been feeling nauseous she is jaundice. We could not obtain urine yet. Unfortunately we do not have a gastroenterology until Monday with Dr. Vargas. PT and PTT order. (2) Encephalopathy Is this a current diagnosis for this admission?: Yes Plan: I sent ammonia which at the time of this dictation is back and is 15.8, less likely hepatic encephalopathy. It could be related with hepatorenal syndrome. Before ammonia came back I order lactulose as the patient has not had any bowel movement today. (3) Acute kidney injury Is this a current diagnosis for this admission?: Yes Plan: BUN 26 and creatinine 1.6 from 10/0.67 05/17/18, likely secondary to severe intravascular depletion. I ordered 50 g of 25% albumin. Concerns for hepatorenal syndrome. We will reassess BUN and creatinine in the morning, if necessary we will ask nephrology for recommendations. (4) Lactic acidosis Is this a current diagnosis for this admission?: Yes Plan: Lactic acid 3.9, likely multifactorial. Will reassess lactic acid in the morning. (5) Hypotension Is this a current diagnosis for this admission?: Yes Plan: Hypotension likely secondary to intravascular depletion, as listed before and given IV albumin and will closely monitor her blood pressure. She will be on telemetry monitoring. (6) DVT prophylaxis Is this a current diagnosis for this admission?: Yes Plan: Heparin - Time Time Spent: 50 to 70 Minutes - Inpatient Certification Based on my medical assessment, after consideration of the patient's comorbidities, presenting symptoms, or acuity I expect that the services needed warrant INPATIENT care.: Yes I certify that my determination is in accordance with my understanding of Medicare's requirements for reasonable and necessary INPATIENT services [42 CFR 412.3e].: Yes Medical Necessity: Risk of Complication if Not Cared For in Hospital - Hypotension with cardiac arrest
[2018-06-23] MEDS ORDERED: HEPARIN SOD (PORCINE) 5,000 UNIT/ML 1 ML SYRINGE SUBCUT SCH (06:00)
[2018-06-23] MEDS ORDERED: LACTULOSE SYRUP 20 GM/30 ML UDCUP PO PRN (06:52)
[2018-06-23 09:07] LABS: HEMATOCRIT 38.4 % (36.0-47.0); MEAN CORPUSCULAR HEMOGLOBIN 32.5 pg (27.0-33.4); MEAN CORPUSCULAR VOLUME 96 fl (80-97); PLATELET COUNT 142 10^3/uL (150-450); RED BLOOD COUNT 4.01 10^6/uL (3.72-5.28); RED CELL DISTRIBUTION WIDTH 13.8 % (11.5-14.0); WHITE BLOOD COUNT 13.3 10^3/uL (4.0-10.5)
[2018-06-23 09:10] LABS: INTERNATIONAL RATION (INR) 2.17; PROTHROMBIN TIME 25.3 SEC (11.4-15.4)
[2018-06-23 09:11] LABS: PARTIAL THROMBOPLASTIN TIME 49.1 SEC (23.5-35.8)
[2018-06-23 09:21] LABS: ABSOLUTE LYMPHOCYTES# (MANUAL) 0.8 10^3/uL (0.5-4.7); ABSOLUTE MONOCYTES # (MANUAL) 0.5 10^3/uL (0.1-1.4); ABSOLUTE NEUTROPHILS# (MANUAL) 11.8 10^3/uL (1.7-8.2); BASOPHILS % (MANUAL) 0 % (0-2); EOSINOPHILS % (MANUAL) 1 % (0-6); LYMPHOCYTES % (MANUAL) 6 % (13-45); MONOCYTES % (MANUAL) 4 % (3-13); SEGMENTED NEUTROPHILS % (MAN) 89 % (42-78); TOTAL CELLS COUNTED 100
[2018-06-23 09:23] LABS: PLATELET COMMENT DECREASED; TOXIC GRANULATION 2+; TOXIC VACUOLATION PRESENT
[2018-06-23] MEDS: MULTIVITAMIN TABLET PO SCH (09:26)
[2018-06-23] MEDS: CITALOPRAM HYDROBROMIDE 20 MG TABLET PO SCH (09:26)
[2018-06-23 09:32] LABS: ALANINE AMINOTRANSFERASE 35 U/L (9-52); ALBUMIN 2.9 g/dL (3.5-5.0); ALKALINE PHOSPHATASE 164 U/L (38-126); ANION GAP 16 (5-19); ASPARTATE AMINO TRANSFERASE 55 U/L (14-36); BILIRUBIN,DIRECT 2.7 mg/dL (0.0-0.4); BLOOD UREA NITROGEN 25 mg/dL (7-20); CALCIUM 8.8 mg/dL (8.4-10.2); CARBON DIOXIDE 21 mmol/L (22-30); CHLORIDE 96 mmol/L (98-107); GLUCOSE 93 mg/dL (75-110); PHOSPHORUS 4.5 mg/dL (2.5-4.5); POTASSIUM 3.6 mmol/L (3.6-5.0); SODIUM 132.5 mmol/L (137-145); TOTAL PROTEIN 6.7 g/dL (6.3-8.2)
[2018-06-23] MEDS ORDERED: CEFTRIAXONE 1 GM/D5W RTU 1 GM/50 ML RTUPB IV SCH (10:00)
[2018-06-23] MEDS ORDERED: FERROUS SULFATE 325 MG TABLET PO SCH (10:00)
[2018-06-23] MEDS ORDERED: CEFTRIAXONE SODIUM 1,000 MG in DEXTROSE 5%-WATER 50 ML IV SCH (18:00)
--- NOTE | 2018-06-23 18:37 | PROGRESS NOTE E ---
Progress Note NAME: THEODORE BELTRÁN : 1965 AGE: 52Y DATE: 06/23/2018 ROOM: 322 SUBJECTIVE: The patient is lying in bed. The patient is having oozing around her gums which is distressing to her. The patient states that she is sleepy but overall feels good, no pain at this time. The patient has elected to proceed with comfort measures. There have been no reported episodes of nausea, vomiting, nor diarrhea. The patient has been afebrile, blood pressures have been on the very low side, and the patient is unable to voice any specific concerns at this time. REVIEW OF SYSTEMS: Unobtainable. MEDICATIONS: Reviewed. OBJECTIVE: GENERAL: The patient is a 52-year-old female who is awake but groggy, does not appear to be distressed. VITAL SIGNS: As follows: Temperature is 97.8, pulse 94, respirations 16, blood pressure is 94/54, oxygen saturation is 97% on room air. SKIN: Warm. She is very pale but jaundice at the same time, not diaphoretic. HEENT: Pupils are reactive. Sclerae is icterus. The patient does have bleeding around her gums and the corners of her mouth but has no evidence of JVP. CARDIOVASCULAR: Heart is regular. No rub. CHEST: Diminished, symmetrical. ABDOMEN: Distended, but there is no area of focal tenderness. EXTREMITIES: The patient does have anasarca. PSYCHIATRIC: The patient is groggy. DIAGNOSTICS: Lab values are as follows. Hematology obtained on 06/23/2018: WBCs are 13.3, hemoglobin is 13.0, hematocrit is 38.4, platelet count is 142,000. Chemistry obtained on 06/23/2018: Sodium is 132, potassium 3.6, chloride 96, carbon dioxide 21, BUN 25, creatinine is 0.62, glucose 93, lactic acid is 3.5, calcium is 8.8, phosphorus 1.5, magnesium is 2.1, bilirubin is 4, AST 55, ALT is 35, alk phos 164, total protein is 6.7, albumin is 2.9. IMPRESSION AND PLAN: 1. END-STAGE ALCOHOLIC CIRRHOSIS. Did discuss the MELD Score with the family to give them a point of reference, and the patient's was 28. The family has elected to proceed with hospice; however, the patient's is going to have to have some help with this as he himself has had a traumatic brain injury and is having difficulty processing information. [place] of the situation. Her name is Tessie, who may be reached at [phone]. 2. HEPATORENAL SYNDROME. I have a high suspicion of this given the patient's creatinine did not improve with aggressive hydration overnight. Her creatinine is currently 1.62. Additionally, the patient has had very minimal urine output suggestive of an oliguric-type renal failure. 3. HEPATIC ENCEPHALOPATHY. I have discussed this with the family. They are aware if the patient does not take lactulose her ammonia would only build up. The family is comforted by the thought of her being able to go to sleep peacefully at some point. Will hold lactulose for now and administer just as requested. 4. LACTIC ACIDOSIS, MOST LIKELY MULTIFOCAL. The patient just is in a low-flow state. 5. HYPOTENSION. The patient is reflective of her severe liver failure and portal hypertension. 6. COAGULOPATHY. The patient's INR is 2.17. Her platelets are not too bad at 142; however, she is oozing blood in multiple areas and is quite bruised. This is a little distressing to the family but she did receive a dose of AquaMEPHYTON. DISPOSITION: THE PATIENT IS A DO NOT RESUSCITATE/DO NOT INTUBATE WITH COMFORT MEASURES ONLY. The patient will be downgraded to a medical bed. Will consult Hospice and Social Work to arrange for this. Time spent on this followup, including assessment/plan, physical examination, patient education, review of records, is 35 minutes. DICTATING PHYSICIAN: NOE IRIZARRY [id number] PHY#: [id number] ID: [id number] JOB#: [id number] ACCT: [id number] cc: >
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
[2018-06-24] MEDS: CITALOPRAM HYDROBROMIDE 20 MG TABLET PO SCH (10:45)
[2018-06-24] MEDS: MULTIVITAMIN TABLET PO SCH (10:45)
--- NOTE | 2018-06-24 17:30 | PDOC PROGRESS REPORT ---
Subjective Progress Note for:: 06/24/18 Subjective:: No adverse events overnight. She was eating some lunch when I saw her today. Her family was in the room including her parents and her . Her parents seem to want to see her Comfortable but it seems like her is having a hard time understanding the gravity of her situation and wants to be more aggressive. The patient does not seem to be able to comprehend her situation either. She is deferring all the decisions to her and her family. Reason For Visit: WORSENING ASCITIS, HYPOTENSION Physical Exam Vital Signs: Temp Pulse Resp BP Pulse Ox 98.6 F 103 H 16 91/53 L 92 06/24/18 08:00 06/24/18 08:00 06/24/18 08:00 06/24/18 08:00 06/24/18 08:00 Intake & Output 06/23/18 06/24/18 06/25/18 06:59 06:59 06:59 Intake Total 1339 0 Output Total 0 Balance 1339 0 Weight 77.4 kg 77 kg General appearance: PRESENT: no acute distress, cooperative Eye exam: PRESENT: scleral icterus Teeth exam: PRESENT: other - She seems to have some blood oozing from her gums and it has dried on her teeth Respiratory exam: PRESENT: clear to auscultation melany, symmetrical, unlabored. ABSENT: accessory muscle use, chest wall tenderness, rales, rhonchi, tachypnea, wheezes Cardiovascular exam: PRESENT: RRR, +S1, +S2 GI/Abdominal exam: PRESENT: normal bowel sounds, soft. ABSENT: distended, guarding, rebound, tenderness Extremities exam: PRESENT: pedal edema. ABSENT: clubbing Musculoskeletal exam: PRESENT: normal inspection. ABSENT: deformity Neurological exam: PRESENT: alert, awake, oriented to person, oriented to place Skin exam: PRESENT: jaundice Results Laboratory Results: 06/23/18 08:33 06/23/18 08:33 Impressions: Abdomen/Pelvis CT 06/22/18 20:46 IMPRESSION: Large amount of abdominal and pelvic ascites. This is significantly increased from the prior study. No focal fluid collections. No evidence for bowel obstruction. Moderate left pleural effusion. Right SFV acute/subacute thrombosis is noted, does not extend to the iliac veins or IVC. Correlate clinically for acuity. Assessment & Plan - Diagnosis (1) Hepatorenal syndrome Is this a current diagnosis for this admission?: Yes Plan: This is strongly suspected. She has a chronic low blood pressure that does not respond to IV fluids, which could indicate arterial vasodilation as a result of her chronic liver disease. As previously noted, her meld score is 28. Her BUN and creatinine did not respond to hydration. At this point her family wants her to be comfort measures, but her as previously noted seems to be having a hard time understanding just how advanced her disease is. The family has agreed to a hospice consultation and having a conversation with them. - Time Time Spent with patient: 25-34 minutes
[2018-06-24] MEDS: HYDROMORPHONE HCL INJ/PF 2 MG/ML AMPULE IV PRN (21:53)
[2018-06-25] MEDS: HYDROMORPHONE HCL INJ/PF 2 MG/ML AMPULE IV PRN ×5 (08:03→19:50)
[2018-06-25 12:45] LABS: HEMATOCRIT 37.5 % (36.0-47.0); HEMOGLOBIN 12.9 g/dL (12.0-15.5); MEAN CORPUSCULAR HEMOGLOBIN 32.6 pg (27.0-33.4); MEAN CORPUSCULAR HGB CONC 34.4 g/dL (32.0-36.0); MEAN CORPUSCULAR VOLUME 95 fl (80-97); PLATELET COUNT 160 10^3/uL (150-450); RED BLOOD COUNT 3.95 10^6/uL (3.72-5.28); RED CELL DISTRIBUTION WIDTH 13.8 % (11.5-14.0); WHITE BLOOD COUNT 15.5 10^3/uL (4.0-10.5)
[2018-06-25 13:08] LABS: ALANINE AMINOTRANSFERASE 27 U/L (9-52); ALBUMIN 2.4 g/dL (3.5-5.0); ALKALINE PHOSPHATASE 171 U/L (38-126); ANION GAP 14 (5-19); ASPARTATE AMINO TRANSFERASE 53 U/L (14-36); BILIRUBIN,DIRECT 2.3 mg/dL (0.0-0.4); BILIRUBIN,TOTAL 4.3 mg/dL (0.2-1.3); BLOOD UREA NITROGEN 28 mg/dL (7-20); CALCIUM 8.4 mg/dL (8.4-10.2); CARBON DIOXIDE 19 mmol/L (22-30); CHLORIDE 97 mmol/L (98-107); GLUCOSE 105 mg/dL (75-110); POTASSIUM 3.7 mmol/L (3.6-5.0); SODIUM 130.2 mmol/L (137-145); TOTAL PROTEIN 6.3 g/dL (6.3-8.2)
[2018-06-25 14:00] LABS: ABSOLUTE LYMPHOCYTES# (MANUAL) 0.3 10^3/uL (0.5-4.7); ABSOLUTE MONOCYTES # (MANUAL) 0.5 10^3/uL (0.1-1.4); ABSOLUTE NEUTROPHILS# (MANUAL) 14.6 10^3/uL (1.7-8.2); BASOPHILS % (MANUAL) 0 % (0-2); EOSINOPHILS % (MANUAL) 1 % (0-6); LYMPHOCYTES % (MANUAL) 2 % (13-45); METAMYELOCYTES % (MANUAL) 1 % (0); MONOCYTES % (MANUAL) 3 % (3-13); SEGMENTED NEUTROPHILS % (MAN) 93 % (42-78); TOTAL CELLS COUNTED 100
[2018-06-25 14:01] LABS: PLATELET CLUMPS PRESENT; PLATELET COMMENT ADEQUATE; RBC MORPHOLOGY COMMENT NORMO-CYTIC/CHROMIC
[2018-06-25] MEDS: MULTIVITAMIN TABLET PO SCH (14:02)
[2018-06-25] MEDS: CITALOPRAM HYDROBROMIDE 20 MG TABLET PO SCH (14:02)
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
[2018-06-25] MEDS: MORPHINE SULFATE 10 MG/ML INJ IV PRN ×2 (15:59→18:40)
--- NOTE | 2018-06-25 18:19 | PDOC PROGRESS REPORT ---
Subjective Progress Note for:: 06/25/18 Subjective:: No acute events overnight. Patient was transitioned to comfort care for the last 2 days and has been pending transfer to hospice however from my conversation with the family I figured that they may not have had a proper understanding of patient's medical problems. Patient was diagnosed with hepatorenal syndrome which is a diagnosis of exclusion and could only be accurately diagnosed by both GI and nephrology. Patient has been receiving treatment at [facility] however no records are available. At this point I believe patient may benefit from GI and nephrology consult before being transitioned to comfort measures. Patient's family was counseled about my assessment and plan and they were very appreciative and agreed with the plan. Reason For Visit: WORSENING ASCITIS, HYPOTENSION Physical Exam Vital Signs: Temp Pulse Resp BP Pulse Ox 98.2 F 102 H 22 H 88/60 L 93 06/25/18 08:00 06/25/18 08:00 06/25/18 08:00 06/25/18 08:00 06/25/18 08:00 Intake & Output 06/24/18 06/25/18 06/26/18 06:59 06:59 06:59 Intake Total 0 118 100 Output Total 0 50 Balance 0 68 100 Weight 77 kg General appearance: PRESENT: no acute distress, well-developed, well-nourished Respiratory exam: PRESENT: clear to auscultation melany. ABSENT: rales, rhonchi, wheezes Cardiovascular exam: PRESENT: RRR. ABSENT: diastolic murmur, rubs, systolic murmur GI/Abdominal exam: PRESENT: ascites, normal bowel sounds, soft. ABSENT: distended, guarding, mass, organolmegaly, rebound, tenderness Neurological exam: PRESENT: alert, altered, awake, oriented to person, oriented to place, oriented to time, oriented to situation, CN II-XII grossly intact Skin exam: PRESENT: dry, intact, warm. ABSENT: cyanosis, rash Results Laboratory Results: 06/25/18 12:24 06/25/18 12:24 06/25/18 06/25/18 12:24 12:24 WBC 15.5 H RBC 3.95 Hgb 12.9 Hct 37.5 MCV 95 MCH 32.6 MCHC 34.4 RDW 13.8 Plt Count 160 Seg Neutrophils % Not Reportable Lymphocytes % Not Reportable Monocytes % Not Reportable Eosinophils % Not Reportable Basophils % Not Reportable Absolute Neutrophils Not Reportable Absolute Lymphocytes Not Reportable Absolute Monocytes Not Reportable Absolute Eosinophils Not Reportable Absolute Basophils Not Reportable Sodium 130.2 L Potassium 3.7 Chloride 97 L Carbon Dioxide 19 L Anion Gap 14 BUN 28 H Creatinine 1.62 H Est GFR ( Amer) 40 L Est GFR (Non-Af Amer) 33 L Glucose 105 Calcium 8.4 Magnesium 2.1 Total Bilirubin 4.3 H AST 53 H ALT 27 Alkaline Phosphatase 171 H Total Protein 6.3 Albumin 2.4 L Impressions: Abdomen/Pelvis CT 06/22/18 20:46 IMPRESSION: Large amount of abdominal and pelvic ascites. This is significantly increased from the prior study. No focal fluid collections. No evidence for bowel obstruction. Moderate left pleural effusion. Right SFV acute/subacute thrombosis is noted, does not extend to the iliac veins or IVC. Correlate clinically for acuity. Assessment & Plan - Diagnosis (1) Cirrhosis of liver with ascites Qualifiers: Hepatic cirrhosis type: alcoholic cirrhosis Qualified Code(s): K70.31 - Alcoholic cirrhosis of liver with ascites Is this a current diagnosis for this admission?: Yes Plan: Likely due to underlying cirrhosis. Status post diagnostic paracentesis on with white blood cells of 17 unfortunately no ascitic fluid albumin was ordered. Cultures negative so far. Patient will require a therapeutic paracentesis but unfortunately it has been held due to low blood pressure. She had a paracentesis done a week ago with 7 L of fluid removed. Concern was raised for possible hepatorenal syndrome and GI and nephrology consulted. Continue volume restriction and diuresis guided by vitals. Pending medical records (2) Acute kidney injury Is this a current diagnosis for this admission?: Yes Plan: Likely prerenal due to decreased intravascular volume caused by underlying cirrhosis. Creatinine is unchanged from admission. Consulted nephrology and gastroenterology. Monitor electrolytes and volume status. (3) Encephalopathy Is this a current diagnosis for this admission?: Yes Plan: Improving. Metabolic encephalopathy likely due to underlying liver cirrhosis. Ammonia 15.8 on admission. Continue lactulose, titrate to have 3 soft bowel movements in 24 hours. (4) Generalized abdominal pain Is this a current diagnosis for this admission?: Yes Plan: Likely due to worsening ascites. CT negative for IVC thrombosis. Paracentesis fluid negative for SBP. Some leukocytosis with no bandemia. Leukocytosis could be due to underlying lower extremity cellulitis. Continue empiric antibiotics supportive measures. (5) Hypotension Is this a current diagnosis for this admission?: Yes Plan: Possibly due to underlying cirrhosis. Will start on midodrine. (6) Lactic acidosis Is this a current diagnosis for this admission?: Yes Plan: Due to underlying hypertension caused by liver cirrhosis.
[2018-06-25] MEDS ORDERED: LACTULOSE SYRUP 20 GM/30 ML UDCUP PO PRN (18:58)
--- NOTE | 2018-06-25 20:38 | PDOC CONSULTATION ---
Consultation Consult Date: 06/25/18 Attending physician:: SOWMYA JEFFERS Consult reason:: I was asked to see the patient because of acute renal failure. History of Present Illness Admission Date/PCP: 06/22/18 22:23 History of Present Illness: THEODORE BELTRÁN is a 52 year old female with history of alcoholic liver cirrhosis, asthma, diabetes mellitus type 2, depression who was admitted on because of increasing abdominal pain. Patient apparently had a large volume paracentesis obtaining about 7 L of peritoneal fluid prior to admission but was not given any albumin. Initial consideration was spontaneous bacterial peritonitis however until now there is no significant growth and the peritoneal fluid culture. Patient is being treated with antibiotics anyway. Patient is also encephalopathic and other and is a poor historian. She admits to being forgetful but is really difficult to get a straight answer from her when asked about questions regarding her care. Apparently she was worked up in some other centers including [facility] [place], [place] but records are unavailable at this time. When she came in she had elevated BUN of 26 creatinine 1.61 which persists until now and today she had a BUN of 28 creatinine 1.62 with estimated GFR 33 which is virtually unchanged from admission. On May 17 she had a BUN of 10 creatinine of 0.67. She also has low sodium around 130s since admission. She was given some minimal amount of IV fluids on admission may be a total of 1.5 L which did not really improve her kidney function. Her urine output is not quantified. She is also hypotensive persistently with blood pressure anywhere between 80s-90s over 50s-60s the lowest recorded was 61/20. Patient is not aware of any previous kidney disease but again she is not a very good historian and she seems to be really confused. Currently she said she gets short of breath at times but not now. She denies any abdominal pain, nausea, vomiting, fever but admits to feeling tired. She also admits that her appetite is not good and is not really eating much. She said she did drink some water but just a little bit. She had a CT scan of the abdomen which shows sinus but no hydronephrosis no other findings in the kidneys. Review of her records for the past few days revealed that her parents seems to have opted for comfort care measures but from records has been seems to want something more. When I asked the patient what she wants to get really could not tell me she seems really confused about the whole situation. Past Medical History Pulmonary Medical History: Reports: Asthma Endocrine Medical History: Reports: Diabetes Mellitus Type 2 GI Medical History: Reports: Cirrhosis Psychiatric Medical History: Reports: Depression Past Surgical History Past Surgical History: Reports: Appendectomy, Cholecystectomy, Hysterectomy, Tonsillectomy Social History Information Source: [facility] Records Lives with: Spouse/Significant other Smoking Status: Never Smoker Frequency of Alcohol Use: None - History of heavy alcohol use Hx Recreational Drug Use: No Hx Prescription Drug Abuse: No - Advance Directive Resuscitation Status: Do Not Resuscitate Family History Family History: Reviewed & Not Pertinent Parental Family History Reviewed: Yes Children Family History Reviewed: Yes Sibling(s) Family History Reviewed.: Yes Medication/Allergy Home Medications: Citalopram Hydrobromide [Celexa 20 mg Tablet] 20 mg PO DAILY 05/13/18 Lactulose [Cephulac Syrup 20 gm/30 ml Udcup] 20 gm PO Q12HP PRN #2 udc 05/17/18 Bupropion HCl [Bupropion Xl] 150 mg PO DAILY 06/23/18 Doxepin HCl [Sinequan 25 Mg Capsule] 25 mg PO QHS 06/23/18 Spironolactone [Aldactone 100 mg Tablet] 1 tab PO DAILY 06/23/18 Allergies/Adverse Reactions: No Known Allergies Allergy (Verified 06/22/18 16:23) Review of Systems All systems: reviewed and no additional remarkable complaints except as stated Review of Systems: Constitutional: ABSENT: chills, fatigue, fever(s), headache(s), weight gain, weight loss Eyes: ABSENT: visual disturbances Ears: ABSENT: hearing changes Cardiovascular: ABSENT: chest pain, dyspnea on exertion, orthropnea, palpitations; admits to occasional shortness of breath Respiratory: ABSENT: cough, hemoptysis; admits shortness of breath Gastrointestinal: ABSENT: Constipation, diarrhea, hematemesis, hematochezia, nausea, vomiting; admits abdominal pain Genitourinary: ABSENT: dysuria, hematuria Musculoskeletal: ABSENT: joint swelling Integumentary: ABSENT: rash, wounds Neurological: ABSENT: abnormal gait, abnormal speech, dizziness, focal weakness , numbness, syncope; patient is confused Psychiatric: ABSENT: anxiety, depression Endocrine: ABSENT: cold intolerance, heat intolerance, polydipsia, polyuria Hematologic/Lymphatic: ABSENT: easy bleeding, easy bruising, lymphadenopathy Physical Exam Vital Signs: Temp Pulse Resp BP Pulse Ox 98.2 F 101 H 22 H 88/60 L 93 06/25/18 08:00 06/25/18 14:00 06/25/18 08:00 06/25/18 08:00 06/25/18 08:00 Intake & Output 06/24/18 06/25/18 06/26/18 06:59 06:59 06:59 Intake Total 0 118 277 Output Total 0 50 Balance 0 68 277 Weight 77 kg Exam: General appearance: No acute distress, cooperative, well-developed, well- nourished Head exam: PRESENT: atraumatic, normocephalic Eye exam: PRESENT: Conjunctiva pale, EOMI, PERRLA. ABSENT: conjunctival injection, scleral icterus Mouth exam: PRESENT: moist, neck supple, tongue midline Neck exam: PRESENT: full ROM. ABSENT: carotid bruit, JVD, lymphadenopathy, thyromegaly Respiratory exam: PRESENT: clear to auscultation bilaterally. ABSENT: rales, rhonchi, stridor, wheezes Cardiovascular exam: PRESENT: RRR, +S1, +S2. ABSENT: systolic murmur Pulses: PRESENT: normal radial pulses, normal dorsalis pedis pulses GI/Abdominal exam: PRESENT: normal bowel sounds, soft. Distended positive ascites ABSENT: guarding, mass, tenderness Rectal exam: Deferred Extremities exam: PRESENT: full ROM. She has grade 1-2 bilateral lower extremity pitting edema up to her thighs. She also has erythema with warmth over her right hip and right thigh area ABSENT: calf tenderness Musculoskeletal: PRESENT: full ROM. ABSENT: deformity Neurological exam: PRESENT: alert, Awake, Oriented to person, Oriented to place , Oriented to time, reflexes normal, CN II-XII grossly intact. ABSENT: motor sensory deficit Psychiatric exam: PRESENT: appropriate affect, normal mood. ABSENT: homicidal ideation, suicidal ideation Skin exam: PRESENT: intact, dry, warm. ABSENT: rash Results Laboratory Results: 06/25/18 12:24 06/25/18 12:24 06/25/18 06/25/18 12:24 12:24 WBC 15.5 H RBC 3.95 Hgb 12.9 Hct 37.5 MCV 95 MCH 32.6 MCHC 34.4 RDW 13.8 Plt Count 160 Seg Neutrophils % Not Reportable Lymphocytes % Not Reportable Monocytes % Not Reportable Eosinophils % Not Reportable Basophils % Not Reportable Absolute Neutrophils Not Reportable Absolute Lymphocytes Not Reportable Absolute Monocytes Not Reportable Absolute Eosinophils Not Reportable Absolute Basophils Not Reportable Sodium 130.2 L Potassium 3.7 Chloride 97 L Carbon Dioxide 19 L Anion Gap 14 BUN 28 H Creatinine 1.62 H Est GFR ( Amer) 40 L Est GFR (Non-Af Amer) 33 L Glucose 105 Calcium 8.4 Magnesium 2.1 Total Bilirubin 4.3 H AST 53 H ALT 27 Alkaline Phosphatase 171 H Total Protein 6.3 Albumin 2.4 L Impressions: Abdomen/Pelvis CT 06/22/18 20:46 IMPRESSION: Large amount of abdominal and pelvic ascites. This is significantly increased from the prior study. No focal fluid collections. No evidence for bowel obstruction. Moderate left pleural effusion. Right SFV acute/subacute thrombosis is noted, does not extend to the iliac veins or IVC. Correlate clinically for acuity. Assessment & Plan - Diagnosis (1) Acute kidney injury Is this a current diagnosis for this admission?: Yes Plan: Patient's kidney function is currently unchanged for the last 3 days but is significantly worse compared to last month with seemingly normal baseline kidney function. She had minimal IV fluid hydration which did not improve the kidney function. Differential diagnosis remains to be the following: Prerenal azotemia secondary to intravascular depletion, hepatorenal syndrome, and ATN due to hypotension. No obstruction. I will get a urinalysis, urine sodium and urine creatinine at least. We will give her IV albumin daily to hopefully improve urine flow. At this time there is really no indication for any renal replacement therapy. If this is in fact hepatorenal syndrome, the treatment of which really rely on if there is any possible treatment for her liver cirrhosis at this point. At this time we just need to monitor the patient's kidney function. (2) Alcoholic cirrhosis Qualifiers: Ascites presence: with ascites Qualified Code(s): K70.31 - Alcoholic cirrhosis of liver with ascites Is this a current diagnosis for this admission?: Yes Plan: GI was consulted. Agree with low-dose diuretics. (3) Ascites Is this a current diagnosis for this admission?: Yes Plan: Apparently recurrent with large volume paracentesis in the past. (4) Encephalopathy Is this a current diagnosis for this admission?: Yes Plan: Currently on lactulose. (5) Hypotension Is this a current diagnosis for this admission?: Yes (6) Hyponatremia Is this a current diagnosis for this admission?: Yes Plan: Secondary to her cirrhosis. Mild and stable. (7) Hypoalbuminemia Is this a current diagnosis for this admission?: Yes Plan: Give IV albumin at least daily. (8) Lactic acidosis Is this a current diagnosis for this admission?: Yes - Notes Notes: Thank you very much for this consultation. I think the patient's family ,who ever is deciding for her , should make a decision if they really want any aggressive measures versus comfort measures because at this time it seems to be unclear. - Time Time Spent: 50 to 70 Minutes
[2018-06-25] MEDS: CEFTRIAXONE SODIUM 1,000 MG in DEXTROSE 5%-WATER 50 ML IV SCH (21:35)
[2018-06-25] MEDS: FUROSEMIDE INJ/PF 20 MG/2 ML SDV IV SCH (21:41)
[2018-06-25] MEDS ORDERED: ALBUMIN HUMAN 12.5 GM/50 ML RTUINJ IV SCH (22:00)
[2018-06-25] MEDS: MIDODRINE HCL 5 MG TABLET PO SCH (22:08)
[2018-06-25] MEDS ORDERED: ALBUMIN HUMAN 12.5 GM/50 ML RTUINJ IV ONE (23:45)
[2018-06-25 23:56] LABS: URINE CREATININE 135.5 mg/dL (15-278)
[2018-06-26 00:01] LABS: URINE SODIUM < 5 mmol/L (30-90)
[2018-06-26 00:13] LABS: APPEARANCE,URINE CLOUDY; BILIRUBIN,URINE NEGATIVE (NEGATIVE); COLOR,URINE AMBER; GLUCOSE, URINE NEGATIVE (NEGATIVE); KETONES,URINE NEGATIVE (NEGATIVE); LEUKOCYTE ESTERASE,URINE NEGATIVE (NEGATIVE); NITRITE,URINE NEGATIVE (NEGATIVE); PROTEIN,URINE NEGATIVE (NEGATIVE); URINE SPECIFIC GRAVITY 1.025; UROBILINOGEN,URINE NEGATIVE mg/dL (<2.0)
--- NOTE | 2018-06-26 07:12 | Progress Note ---
Provider Note Provider Note: Nephrology has seen the patient. recommendations made. trial to see if renal function can improve patient has had recurrent ascites, large volume paracentesis in the past. patient's INR is elevated, indicating worsening liver function. records are still pending from [facility], prior to yesterday, it was discussed with the patient about comfort care measures. patient does have confusion, so trial of lactulose or Xifaxin can be attempted. as noted depending on the level of care, patient would benefit from TIPS if that is what is decided. however I am not sure what capacity the patient has or that the family members are able to make in informed decision. apparently a prior discussion was already attempted and comfort measures had been accepted until yesterday. Recommendations: 1.wait on records. 2.attempt diuretics since Nephrology has agreed. 3.patient likely has some encephalopathy and Xifaxin can be started. 4.transfer to tertiary institution for more aggressive care if that is decided. However unless the patient is a candidate for a liver transplant, this bridging type procedure would not extend her lifespan and would put her at risk of further encephalopathy. It may reduce recurrent ascites and reduce risk of variceal bleeding however.
[2018-06-26] MEDS: HYDROMORPHONE HCL INJ/PF 2 MG/ML AMPULE IV PRN ×6 (07:15→23:58)
[2018-06-26 07:32] LABS: ALANINE AMINOTRANSFERASE 27 U/L (9-52); ALBUMIN 2.3 g/dL (3.5-5.0); ALKALINE PHOSPHATASE 168 U/L (38-126); ANION GAP 13 (5-19); ASPARTATE AMINO TRANSFERASE 54 U/L (14-36); BILIRUBIN,DIRECT 2.5 mg/dL (0.0-0.4); BILIRUBIN,TOTAL 4.2 mg/dL (0.2-1.3); BLOOD UREA NITROGEN 29 mg/dL (7-20); CALCIUM 8.2 mg/dL (8.4-10.2); CARBON DIOXIDE 20 mmol/L (22-30); CHLORIDE 97 mmol/L (98-107); GLUCOSE 94 mg/dL (75-110); POTASSIUM 3.7 mmol/L (3.6-5.0); SODIUM 130.1 mmol/L (137-145); TOTAL PROTEIN 6.3 g/dL (6.3-8.2)
[2018-06-26 07:51] LABS: HEMATOCRIT 40.1 % (36.0-47.0); HEMOGLOBIN 13.8 g/dL (12.0-15.5); MEAN CORPUSCULAR HEMOGLOBIN 32.3 pg (27.0-33.4); MEAN CORPUSCULAR HGB CONC 34.4 g/dL (32.0-36.0); MEAN CORPUSCULAR VOLUME 94 fl (80-97); RED BLOOD COUNT 4.26 10^6/uL (3.72-5.28); RED CELL DISTRIBUTION WIDTH 13.8 % (11.5-14.0)
[2018-06-26] MEDS ORDERED: VANCOMYCIN HCL 0 MG in DEXTROSE 5%-WATER 250 ML IV NR (08:15)
[2018-06-26 08:24] LABS: ABSOLUTE LYMPHOCYTES# (MANUAL) 0.3 10^3/uL (0.5-4.7); ABSOLUTE MONOCYTES # (MANUAL) 0.1 10^3/uL (0.1-1.4); ABSOLUTE NEUTROPHILS# (MANUAL) 12.4 10^3/uL (1.7-8.2); BASOPHILS % (MANUAL) 0 % (0-2); EOSINOPHILS % (MANUAL) 2 % (0-6); LYMPHOCYTES % (MANUAL) 2 % (13-45); MONOCYTES % (MANUAL) 1 % (3-13); SEGMENTED NEUTROPHILS % (MAN) 95 % (42-78); TOTAL CELLS COUNTED 100
[2018-06-26 08:25] LABS: BURR CELLS 1+; PLATELET CLUMPS PRESENT; POIKILOCYTOSIS 1+; TARGET CELLS SLIGHT
[2018-06-26 08:26] LABS: PLATELET COUNT 127 10^3/uL (150-450)
[2018-06-26] MEDS: MORPHINE SULFATE 10 MG/ML INJ IV PRN ×4 (09:15→17:37)
[2018-06-26] MEDS ORDERED: CEFTRIAXONE 1 GM/D5W RTU 1 GM/50 ML RTUPB IV SCH (10:00)
[2018-06-26] MEDS: ALBUMIN HUMAN 12.5 GM/50 ML RTUINJ IV SCH (13:45)
[2018-06-26] MEDS: FUROSEMIDE INJ/PF 20 MG/2 ML SDV IV SCH ×2 (13:46→21:26)
[2018-06-26] MEDS: CITALOPRAM HYDROBROMIDE 20 MG TABLET PO SCH (13:46)
[2018-06-26] MEDS: MIDODRINE HCL 5 MG TABLET PO SCH ×3 (13:46→19:35)
[2018-06-26] MEDS: MULTIVITAMIN TABLET PO SCH (13:47)
[2018-06-26] MEDS: VANCOMYCIN HCL 1,500 MG in DEXTROSE 5%-WATER 250 ML IV SCH (13:47)
--- NOTE | 2018-06-26 20:07 | PDOC PROGRESS REPORT ---
Subjective Progress Note for:: 06/26/18 Subjective:: No acute events overnight. Patient was transitioned to comfort care for the last 2 days and has been pending transfer to hospice however from my conversation with the family I figured that they may not have had a proper understanding of patient's medical problems. Patient was diagnosed with hepatorenal syndrome which is a diagnosis of exclusion and could only be accurately diagnosed by both GI and nephrology. Patient has been receiving treatment at [facility] however no records are available. At this point I believe patient may benefit from GI and nephrology consult before being transitioned to comfort measures. Patient's family was counseled about my assessment and plan and they were very appreciative and agreed with the plan. 04/26/2018. Patient transition back to comfort measure as per family request. Reason For Visit: WORSENING ASCITIS, HYPOTENSION Physical Exam Vital Signs: Temp Pulse Resp BP Pulse Ox 97.9 F 95 20 86/56 L 100 06/26/18 15:57 06/26/18 19:00 06/26/18 15:57 06/26/18 15:57 06/26/18 15:57 Intake & Output 06/25/18 06/26/18 06/27/18 06:59 06:59 06:59 Intake Total 118 427 Output Total 50 1225 650 Balance 68 -798 -650 Weight 77 kg General appearance: PRESENT: no acute distress, well-developed, well-nourished Respiratory exam: PRESENT: clear to auscultation melany. ABSENT: rales, rhonchi, wheezes Cardiovascular exam: PRESENT: RRR. ABSENT: diastolic murmur, rubs, systolic murmur GI/Abdominal exam: PRESENT: normal bowel sounds, soft. ABSENT: distended, guarding, mass, organolmegaly, rebound, tenderness Results Laboratory Results: 06/26/18 06:51 06/26/18 06:51 06/25/18 06/26/18 06/26/18 23:30 06:51 06:51 WBC 13.0 H RBC 4.26 Hgb 13.8 Hct 40.1 MCV 94 MCH 32.3 MCHC 34.4 RDW 13.8 Plt Count 127 L Seg Neutrophils % Not Reportable Lymphocytes % Not Reportable Monocytes % Not Reportable Eosinophils % Not Reportable Basophils % Not Reportable Absolute Neutrophils Not Reportable Absolute Lymphocytes Not Reportable Absolute Monocytes Not Reportable Absolute Eosinophils Not Reportable Absolute Basophils Not Reportable Sodium 130.1 L Potassium 3.7 Chloride 97 L Carbon Dioxide 20 L Anion Gap 13 BUN 29 H Creatinine 1.54 H Est GFR ( Amer) 42 L Est GFR (Non-Af Amer) 35 L Glucose 94 Calcium 8.2 L Total Bilirubin 4.2 H AST 54 H ALT 27 Alkaline Phosphatase 168 H Total Protein 6.3 Albumin 2.3 L Urine Color LASHELL Urine Appearance CLOUDY Urine pH 5.0 Ur Specific [place] 1.025 Urine Protein NEGATIVE Urine Glucose (UA) NEGATIVE Urine Ketones NEGATIVE Urine Blood NEGATIVE Urine Nitrite NEGATIVE Ur Leukocyte Esterase NEGATIVE Urine WBC (Auto) 4 Urine RBC (Auto) 4 Impressions: Abdomen/Pelvis CT 06/22/18 20:46 IMPRESSION: Large amount of abdominal and pelvic ascites. This is significantly increased from the prior study. No focal fluid collections. No evidence for bowel obstruction. Moderate left pleural effusion. Right SFV acute/subacute thrombosis is noted, does not extend to the iliac veins or IVC. Correlate clinically for acuity. Assessment & Plan - Diagnosis (1) Cirrhosis of liver with ascites Qualifiers: Hepatic cirrhosis type: alcoholic cirrhosis Qualified Code(s): K70.31 - Alcoholic cirrhosis of liver with ascites Is this a current diagnosis for this admission?: Yes Plan: 06/26/2018 patient transition to comfort measures. Likely due to underlying cirrhosis. Status post diagnostic paracentesis on with white blood cells of 17 unfortunately no ascitic fluid albumin was ordered. Cultures negative so far. Patient will require a therapeutic paracentesis but unfortunately it has been held due to low blood pressure. She had a paracentesis done a week ago with 7 L of fluid removed. Concern was raised for possible hepatorenal syndrome and GI and nephrology consulted. Continue volume restriction and diuresis guided by vitals. Pending medical records (2) Acute kidney injury Is this a current diagnosis for this admission?: Yes Plan: Likely prerenal due to decreased intravascular volume caused by underlying cirrhosis. Creatinine is unchanged from admission. Consulted nephrology and gastroenterology. Monitor electrolytes and volume status. (3) Encephalopathy Is this a current diagnosis for this admission?: Yes Plan: 06/26/2018 transition to comfort measures. Improving. Metabolic encephalopathy likely due to underlying liver cirrhosis. Ammonia 15.8 on admission. Continue lactulose, titrate to have 3 soft bowel movements in 24 hours. (4) Generalized abdominal pain Is this a current diagnosis for this admission?: Yes Plan: Likely due to worsening ascites. CT negative for IVC thrombosis. Paracentesis fluid negative for SBP. Some leukocytosis with no bandemia. Leukocytosis could be due to underlying lower extremity cellulitis. Continue empiric antibiotics supportive measures. (5) Hypotension Is this a current diagnosis for this admission?: Yes Plan: Possibly due to underlying cirrhosis. Will start on midodrine. (6) Lactic acidosis Is this a current diagnosis for this admission?: Yes Plan: Due to underlying hypertension caused by liver cirrhosis.
--- NOTE | 2018-06-26 21:04 | PDOC PROGRESS REPORT ---
Subjective Progress Note for:: 06/26/18 Subjective:: Patient's clinical condition is unchanged. She remains confused with ascites and lower extremity swelling. I was informed by her nurse today that the patient's parents had a discussion with Dr. Anderson this morning and confirmed their wishes to have patients be chosen comfort care without any more aggressive measures. Reason For Visit: WORSENING ASCITIS, HYPOTENSION Physical Exam Vital Signs: Temp Pulse Resp BP Pulse Ox 97.9 F 95 20 86/56 L 100 06/26/18 15:57 06/26/18 19:00 06/26/18 15:57 06/26/18 15:57 06/26/18 15:57 Intake & Output 06/25/18 06/26/18 06/27/18 06:59 06:59 06:59 Intake Total 118 427 Output Total 50 1225 650 Balance 68 -798 -650 Weight 77 kg Exam: General appearance: PRESENT: no acute distress, cooperative, well-developed, well-nourished Head exam: PRESENT: atraumatic, normocephalic Eye exam: PRESENT: conjunctiva pale, PERRLA. ABSENT: scleral icterus Neck exam: ABSENT: JVD Respiratory exam: PRESENT: Diminished breath sounds. ABSENT: crackles, rales, rhonchi, unlabored, wheezes Cardiovascular exam: PRESENT: Regular rate rhythm -+S1, +S2. ABSENT: diastolic murmur, systolic murmur GI/Abdominal exam: PRESENT: normal bowel sounds, soft. Distended with ascites ABSENT: guarding, mass, tenderness Extremities exam: Grade 2 bilateral lower extremity bipedal edema Neurological exam: PRESENT: Asleep but arousable and remains to be confused. Skin exam: PRESENT: dry, warm, Results Laboratory Results: 06/26/18 06:51 06/26/18 06:51 06/25/18 06/26/18 06/26/18 23:30 06:51 06:51 WBC 13.0 H RBC 4.26 Hgb 13.8 Hct 40.1 MCV 94 MCH 32.3 MCHC 34.4 RDW 13.8 Plt Count 127 L Seg Neutrophils % Not Reportable Lymphocytes % Not Reportable Monocytes % Not Reportable Eosinophils % Not Reportable Basophils % Not Reportable Absolute Neutrophils Not Reportable Absolute Lymphocytes Not Reportable Absolute Monocytes Not Reportable Absolute Eosinophils Not Reportable Absolute Basophils Not Reportable Sodium 130.1 L Potassium 3.7 Chloride 97 L Carbon Dioxide 20 L Anion Gap 13 BUN 29 H Creatinine 1.54 H Est GFR ( Amer) 42 L Est GFR (Non-Af Amer) 35 L Glucose 94 Calcium 8.2 L Total Bilirubin 4.2 H AST 54 H ALT 27 Alkaline Phosphatase 168 H Total Protein 6.3 Albumin 2.3 L Urine Color LASHELL Urine Appearance CLOUDY Urine pH 5.0 Ur Specific [place] 1.025 Urine Protein NEGATIVE Urine Glucose (UA) NEGATIVE Urine Ketones NEGATIVE Urine Blood NEGATIVE Urine Nitrite NEGATIVE Ur Leukocyte Esterase NEGATIVE Urine WBC (Auto) 4 Urine RBC (Auto) 4 Impressions: Abdomen/Pelvis CT 06/22/18 20:46 IMPRESSION: Large amount of abdominal and pelvic ascites. This is significantly increased from the prior study. No focal fluid collections. No evidence for bowel obstruction. Moderate left pleural effusion. Right SFV acute/subacute thrombosis is noted, does not extend to the iliac veins or IVC. Correlate clinically for acuity. Assessment & Plan - Diagnosis (1) Acute kidney injury Is this a current diagnosis for this admission?: Yes Plan: Her urine sodium is less than 5 which is consistent with either hepatorenal syndrome or prerenal azotemia. Patient's kidney function is very minimally improved compared to yesterday. She still makes urine. There is no indication for renal replacement therapy. As the patient's family decided to make the patient comfort measures, we have nothing else to offer at this point from nephrology standpoint. (2) Alcoholic cirrhosis Qualifiers: Ascites presence: with ascites Qualified Code(s): K70.31 - Alcoholic cirrhosis of liver with ascites Is this a current diagnosis for this admission?: Yes (3) Ascites Is this a current diagnosis for this admission?: Yes (4) Encephalopathy Is this a current diagnosis for this admission?: Yes (5) Hypotension Is this a current diagnosis for this admission?: Yes (6) Hyponatremia Is this a current diagnosis for this admission?: Yes Plan: Unchanged. (7) Hypoalbuminemia Is this a current diagnosis for this admission?: Yes (8) Lactic acidosis Is this a current diagnosis for this admission?: Yes - Notes Notes: Since the patient is now comfort measures only, I will sign off. - Time Time with patient: 15-25 minutes
[2018-06-26] MEDS: CEFTRIAXONE SODIUM 1,000 MG in DEXTROSE 5%-WATER 50 ML IV SCH (21:23)
[2018-06-27] MEDS: HYDROMORPHONE HCL INJ/PF 2 MG/ML AMPULE IV PRN ×3 (04:20→16:35)
[2018-06-27] MEDS: CITALOPRAM HYDROBROMIDE 20 MG TABLET PO SCH (09:29)
[2018-06-27] MEDS: VANCOMYCIN HCL 1,500 MG in DEXTROSE 5%-WATER 250 ML IV SCH (09:30)
[2018-06-27] MEDS: MIDODRINE HCL 5 MG TABLET PO SCH ×3 (09:30→17:03)
[2018-06-27] MEDS: FUROSEMIDE INJ/PF 20 MG/2 ML SDV IV SCH ×2 (09:30→21:10)
[2018-06-27] MEDS: MULTIVITAMIN TABLET PO SCH (09:30)
--- NOTE | 2018-06-27 15:41 | PDOC TRANSFER SUMMARY ---
General - Admit/Disc Date/PCP Admission Date/Primary Care Provider: 06/22/18 22:23 Discharge Date: 06/27/18 - Discharge Diagnosis (1) Cirrhosis of liver with ascites Is this a current diagnosis for this admission?: Yes (2) Acute kidney injury Is this a current diagnosis for this admission?: Yes (3) Encephalopathy Is this a current diagnosis for this admission?: Yes (4) Generalized abdominal pain Is this a current diagnosis for this admission?: Yes (5) Hypotension Is this a current diagnosis for this admission?: Yes (6) Lactic acidosis Is this a current diagnosis for this admission?: Yes - Additional Information Resuscitation Status: Do Not Resuscitate Prescriptions: Morphine Sulfate [Morphine Inj 10 mg/1 ml Vial] 2 mg IV Q4 3 Days #1 disp.syrin Promethazine HCl [Phenergan Inj 25 mg/1 ml Vial] 25 mg IM Q4HP PRN #20 vial PRN Reason: Home Medications: Citalopram Hydrobromide [Celexa 20 mg Tablet] 20 mg PO DAILY 05/13/18 Lactulose [Cephulac Syrup 20 gm/30 ml Udcup] 20 gm PO Q12HP PRN #2 udc 05/17/18 Bupropion HCl [Bupropion Xl] 150 mg PO DAILY 06/23/18 Doxepin HCl [Sinequan 25 mg Capsule] 25 mg PO QHS 06/23/18 Spironolactone [Aldactone 100 mg Tablet] 1 tab PO DAILY 06/23/18 Morphine Sulfate [Morphine Inj 10 mg/1 ml Vial] 2 mg IV Q4 3 Days #1 disp.syrin 06/27/18 Promethazine HCl [Phenergan Inj 25 mg/1 ml Vial] 25 mg IM Q4HP PRN #20 vial 12/08 History of Present Illness Admission Date/PCP: 06/22/18 22:23 History of Present Illness: THEODORE BELTRÁN is a 52 year old female medical history of 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 Abdominal pain was diffuse, aching , stabbing and tender to palpation associated with dyspnea on exertion and diffuse chest pain. 1 week prior to this admission she went to [facility] where she got the paracentesis and 7 L of fluid was removed. In ED he was found with a blood pressure of 89/47 and tachycardic. Concern was raised for SBP and a diagnostic paracentesis was done was negative for any leukocytosis. She was started on Rocephin and Flagyl and and hospital was consulted for admission. Hospital Course Hospital Course: Initially patient was managed as inpatient was started on IV Rocephin and Flagyl and was given 50 g of albumin, but subsequently on 06/23/2018 she was transitioned to comfort care per family's request. On 06/24/2018 when I started taking care of the patient my initial conversation with the family I figured that they may not have had a proper understanding of patient's medical problems. Patient was diagnosed with hepatorenal syndrome which is a diagnosis of exclusion and could only be accurately diagnosed by both GI and nephrology. I thought patient may benefit from GI and nephrology consult before being transitioned to comfort measures. Patient's family was counseled about my assessment and plan and they were very appreciative and agreed with the plan. GI and nephrology were consulted and patient was restarted on empiric antibiotics and lactulose. The following day her parents approached me again asked for the patient to be transitioned to comfort measures and transfer to inpatient hospice care because the family believed that patient is terminal and he did not want her to suffer. Her who is very pleasant but unfortunately has a history of traumatic brain injury stated that he had difficulty processing all the information due to his underlying illness and agreed with the plan that the parents had made. On 04/26/2018 patient was transitioned back to comfort measures. Physical Exam Vital Signs: Temp Pulse Resp BP Pulse Ox 97.4 F 97 14 86/53 L 99 06/26/18 19:55 06/27/18 02:00 06/26/18 19:55 06/26/18 19:55 06/26/18 19:55 Intake & Output 06/26/18 06/27/18 06/28/18 06:59 06:59 06:59 Intake Total 427 0 Output Total 1225 850 100 Balance -798 -850 -100 Weight 77 kg 76.6 kg General appearance: PRESENT: other - Lethargic. Respiratory exam: PRESENT: clear to auscultation melany. ABSENT: rales, rhonchi, wheezes Cardiovascular exam: PRESENT: RRR. ABSENT: diastolic murmur, rubs, systolic murmur GI/Abdominal exam: PRESENT: ascites, normal bowel sounds, soft. ABSENT: distended, guarding, mass, organolmegaly, rebound, tenderness Extremities exam: PRESENT: +2 edema Neurological exam: PRESENT: other - Lethargic and sleepy. Skin exam: PRESENT: jaundice Results Laboratory Results: 06/26/18 06:51 06/26/18 06:51 Impressions: Abdomen/Pelvis CT 06/22/18 20:46 IMPRESSION: Large amount of abdominal and pelvic ascites. This is significantly increased from the prior study. No focal fluid collections. No evidence for bowel obstruction. Moderate left pleural effusion. Right SFV acute/subacute thrombosis is noted, does not extend to the iliac veins or IVC. Correlate clinically for acuity. Qualifiers - * PATIENT BEING DISCHARGED WITH ANY OF THE FOLLOWING DIAGNOSIS: No VTE patient discharged on overlapping Therapy?: Yes
[2018-06-27 20:17] VITALS: BP 83/55
[2018-06-27] MEDS: CEFTRIAXONE SODIUM 1,000 MG in DEXTROSE 5%-WATER 50 ML IV SCH (21:10)
== END 2018-06-28 01:16 | disposition hospice, inpatient (51) | DRG 432 ==
LOC: ER 16:23 → EH 22:23 → 3W 06-23 01:33
PROVIDERS: ADMIT Internal Medicine; ATTEND Internal Medicine
PROC: 0W9G3ZX Drainage of Peritoneal Cavity, Percutaneous Approach, Diagnostic (ICD-10-PCS; principal; 2018-06-22)
DX: K70.31 Alcoholic cirrhosis of liver with ascites (principal); K76.7 Hepatorenal syndrome; N17.9 Acute kidney failure, unspecified; E87.2 Acidosis; D68.9 Coagulation defect, unspecified; E87.1 Hypo-osmolality and hyponatremia; K70.40 Alcoholic hepatic failure without coma; F10.20 Alcohol dependence, uncomplicated; E11.9 Type 2 diabetes mellitus without complications; F32.9 Major depressive disorder, single episode, unspecified; J45.909 Unspecified asthma, uncomplicated; I95.9 Hypotension, unspecified; F17.200 Nicotine dependence, unspecified, uncomplicated; Z51.5 Encounter for palliative care; Z66 Do not resuscitate; E88.09 Other disorders of plasma-protein metabolism, not elsewhere classified; Z90.710 Acquired absence of both cervix and uterus; Z80.49 Family history of malignant neoplasm of other genital organs; Z98.84 Bariatric surgery status
CPT/HCPCS: 36415; 74177; 80053; 81001; 82140; 82570; 83605; 83735; 84100; 84300; 85025; 85610; 85730; 87040; 87070; 87075; 87205; 89050; J0696; J1170; J1940; J2270; J2550; J3490; J7120; P9047